=== PATIENT | female | born 1960 | race Two or more races ===

== ENCOUNTER 2017-07-08 09:45 | Inpatient (IN) | payer BC ==
[2017-07-08] VITALS (11 sets, daily range): BP systolic 135–157; BP diastolic 69–85
[~2017-07-08] VITALS: Ht 162.6 cm; Wt 68.0 kg
[~2017-07-08 09:45] MED LIST: AMOX TR-K CLV1 EAC2 ORAL; CENTRUM SILVER1 EAC4 PO; CRESTOR10 M1 ORAL; DIOVAN HCT 1601 EACH ORAL; HAIR, SKIN & N1 EACH PO; IBUPROFEN800 M1 PO; METFORMIN HCL500 M5 PO; MOVE FREE JOIN1 EACH PO; OMEGA 3 FISH O1 EAC1 PO
--- NOTE | 2017-07-08 10:53 | Pre-Procedure Note/Attestation ---
Pre-Procedure Note/Attestation Complete Prior to Procedure Planned Procedure: right Procedure Narrative: Right buttock wound debridement and flap closure Attestation I attest that I discussed the nature of the procedure; its benefits; risks and complications; and alternatives (and the risks and benefits of such alternatives ), prior to the procedure, with the patient (or the patient's legal environmental marketing representative). I attest that, if there was a reasonable possibility of needing a blood transfusion, the patient (or the patient's legal environmental marketing representative) was given the [facility] standardized written summary, pursuant to the Ramez Igor Blood Safety Act ([place] Health and Safety Code # 1645, as amended). I attest that I re-evaluated the patient just prior to the surgery and that there has been no change in the patient's H&P, except as documented below: NORMA ANDERSON Jul 08, 2017 10:53
[2017-07-08] MEDS ORDERED: Zolpidem 5mg tab ORAL PRN (11:00)
[2017-07-08] MEDS ORDERED: Surgicel 4in x 8in TOPIC ONE (11:36)
[2017-07-08] MEDS ORDERED: Bacitracin 50000 Units Vial ONE (11:36)
[2017-07-08] MEDS ORDERED: Lidocaine 1% 10mg/ml/Epi 0.005mg/ml 30ml vial INJ ONE (11:36)
[2017-07-08] MEDS ORDERED: NeoSporin Gu Irrig 1ml Amp IRRIG ONE (11:36)
[2017-07-08] MEDS ORDERED: NS Irrig 1000ml ONE (12:00)
[2017-07-08] MEDS ORDERED: Neostigmine 1mg/ml 10ml Inj ONE (12:00)
[2017-07-08] MEDS ORDERED: Sterile Water Irrig 1000ml IRRIG ONE (12:00)
[2017-07-08] MEDS ORDERED: Zemuron 50mg/5ml Inj IV ONE (12:00)
[2017-07-08] MEDS ORDERED: Succinylcholine 20mg/ml 10ml vial ONE (12:00)
[2017-07-08] MEDS ORDERED: fentaNYL 100 mcg/2 mL IV ONE (12:00)
[2017-07-08] MEDS ORDERED: LR 1000ml ONE (12:00)
[2017-07-08] MEDS ORDERED: Ketorolac 30mg Inj ONE (12:00)
[2017-07-08] MEDS ORDERED: Glycopyrrolate 0.2mg/ml 1ml Vial ONE (12:00)
[2017-07-08] MEDS ORDERED: Midazolam 2mg/2ml Inj ONE (12:00)
[2017-07-08] MEDS ORDERED: Propofol 200mg/20ml IV ONE (12:00)
[2017-07-08] MEDS ORDERED: NS Irrig 1000ml IRRIG ONE (12:00)
[2017-07-08] MEDS ORDERED: Rate Change PCA 1 Each MISC PRN (12:30)
[2017-07-08] MEDS ORDERED: LR 1000ml 1,000 ML IVLG SCH (12:51)
--- NOTE | 2017-07-08 12:51 | Anethesia Preoperative Eval ---
Anesthesia Pre-op PMH/ROS General Date of Evaluation: Jul 08, 2017 Time of Evaluation: 11:55 Anesthesiologist: Misty ASA Score: ASA 3 Mallampati Score Class I : Soft palate, uvula, fauces, pillars visible Class II: Soft palate, uvula, fauces visible Class III: Soft palate, base of uvula visible Class IV: Only hard plate visible Mallampati Classification: Class II Surgeon: Brennan Diagnosis: Recurrent HS Surgical Procedure: Excision and closure of sacral HS Anesthesia History: none Family History: no anesthesia problems Allergies: Coded Allergies: MORPHINE (Verified Allergy, Severe, itching, 07/07/17) CODEINE (Verified Allergy, Intermediate, nauseous , 07/07/17) Medications: see eMAR Past Medical History Cardiovascular: Reports: HTN, Denies: CAD, SD, valve dz, arrhythmia, other Pulmonary: Denies: asthma, COPD, CALLUM, other Gastrointestinal/Genitourinary: Reports: GERD Neurologic/Psychiatric: Reports: depression/anxiety, Denies: dementia, CVA, TIA, other Endocrine: Reports: DM - on pills, Denies: hypothyroidism, steroids, other HEENT: Denies: cataract (L), cataract (R), glaucoma, PLATINUM (L), PLATINUM (R), other Hematology/Immune: Reports: anemia - mild, Denies: DVT, bleeding disorder, other Musculoskeletal/Integumentary: Denies: OA, RA, DJD, DDD, edema, other PMH Narrative: as above PSxH Narrative: C section x 2, knee Sx Anesthesia Pre-op Phys. Exam Physician Exam Last Vital Signs Date Time Temp Pulse Resp B/P (MAP) Pulse Ox O2 Delivery O2 Flow Rate FiO2 07/08/17 10:29 97.7 73 20 137/79 97 Room Air Constitutional: NAD Neurologic: CN 2-12 intact Cardiovascular: RRR, no M/R/G Respiratory: CTA Gastrointestinal: S/NT/ND Airway Exam Mallampati Score: Class II MO: full Neck: flexible ROM: full Teeth: intact Dentures: no upper, no lower Anesthesia Pre-op A/P Labs see chart Studies Pre-op Studies: EKG - NSR Risk Assessment & Plan Assessment: ASA 3 Plan: GA with ETT prone position Status Change Before Surgery: No Pre-Antibiotics Drug: Ancef 1 gr. Given Within 1 Hr of Incision: Yes Time Given: 12:26 LUIS PACKER M.D. Jul 08, 2017 12:51
[2017-07-08] MEDS ORDERED: Hydromorphone 0.5mg/0.5ml inj IVP PRN (13:00)
[2017-07-08] MEDS ORDERED: Meperidine 25mg/0.5ml Inj (FOR RIGORS ONLY) IV PRN (13:00)
[2017-07-08] MEDS ORDERED: DiphenhydrAMINE 50mg/ml Inj IVP PRN (13:00)
[2017-07-08] MEDS ORDERED: Midazolam 2mg/2ml Inj IVP PRN (13:00)
--- NOTE | 2017-07-08 13:08 | Operative Note - PDOC ---
Operative Note Operative Note Pre-op Diagnosis: Infected right lower buttock tissue Procedure: Excision of right lower buttock infected tissue with flap closure Post-op Diagnosis: same as pre-op Surgeon: Brennan Arboriculture Instructor: Felipa Anesthesia: general Specimen: yes Complications: none Condition: stable Estimated Blood Loss: minimal Drains: FIDELIA Implant(s) used?: No NORMA ANDERSON Jul 08, 2017 13:08
[2017-07-08] MEDS: PCA HYDROmorphone 1mg/ml 30 ML IV PRN (13:43)
--- NOTE | 2017-07-08 15:12 | Immediate Post-Op Evaluation ---
Immediate Post-Op Evalulation Immediate Post-Op Evalulation Procedure: Excision and closure of sacral area HS Date of Evaluation: Jul 08, 2017 Time of Evaluation: 13:37 IV Fluids: 1000 Blood Products: none Estimated Blood Loss: 50 Urinary Output: none Blood Pressure Systolic: 141 Blood Pressure Diastolic: 82 Pulse Rate: 74 Respiratory Rate: 20 O2 Sat by Pulse Oximetry: 99 Temperature (Fahrenheit): 97.6 Pain Score (1-10): 2 Nausea: No Vomiting: No Complications none Patient Status: reacts, patent, extubated, none Hydration Status: adequate LUIS PACKER M.D. Jul 08, 2017 15:12
--- NOTE | 2017-07-08 15:23 | History and Physical ---
History of Present Illness General Date patient seen: Jul 08, 2017 Time patient seen: 15:23 Reason for Hospitalization: surgery Present Illness HPI 57yo female with pmh of hidradenitis suppurative who presents s/p excision of right lower buttock infected tissue with flap closure. Pt doing well postop. Pain controlled w/ dilaudid TRADING MANAGER. Denies f/c, n/v, d/c, chest pain, SOB. Passing gas. Allergies: Coded Allergies: MORPHINE (Verified Allergy, Severe, itching, 07/07/17) CODEINE (Verified Allergy, Intermediate, nauseous , 07/07/17) Medication History Scheduled Amoxicillin/Potassium Clav 875-125 Mg Tab* (Amox Tr-K Clv 875-125 Mg Tab*), 1 TAB ORAL EVERY 12 HOURS, (Reported) Glucosam/Chond/Hyalu/Cf Borate (Move Free Joint Health Tablet), 1 EACH PO DAILY, (Reported) Metformin HCl (Metformin HCl ER), 500 MG PO DAILY, (Reported) Mu-Vits-Min Th/Lycopene/Lutein (Centrum Silver Tablet), 1 EACH PO DAILY, ( Reported) Multivitamin With Minerals (Hair, Skin & Nails), 1 EACH PO DAILY, (Reported) Holt-3 Fatty Acids/Fish Oil (Holt 3 Fish Oil Softgel), 1 EACH PO DAILY, ( Reported) Rosuvastatin Calcium (Crestor), 5 MG ORAL DAILY, (Reported) Valsartan/Hydrochlorothiazide 160-12.5MG (Diovan Hct 160-12.5 Mg Tab), 1 TAB ORAL DAILY, (Reported) Scheduled PRN Ibuprofen (Ibuprofen), 800 MG PO TID PRN for For Pain, (Reported) Patient History History Provided By: Patient, Family Member, PMD Healthcare decision maker BRENDA FARAH - Resuscitation status Full Code Advanced Directive on File Family History Family History: Patient reports no known family medical history. Social History Social History: (1) Lives with family Review of Systems Constitutional: Reports: no symptoms Eye: Reports: no symptoms ENT: Reports: no symptoms Respiratory: Reports: no symptoms Cardiovascular: Reports: no symptoms Gastrointestinal: Reports: no symptoms Genitourinary: Reports: no symptoms Musculoskeletal: Reports: no symptoms Skin: Reports: no symptoms Psychiatric: Reports: no symptoms Neurological: Reports: no symptoms Endocrine: Reports: no symptoms Hematologic/Lymphatic: Reports: no symptoms All Other Systems: negative except mentioned in HPI Physical Exam Physical Exam Narrative General: alert, cooperative, no distress, appears stated age Head: normocephalic, without obvious abnormality, atraumatic Eyes: conjunctivae/corneas clear. PERRL, EOM's intact Throat: lips, mucosa, and tongue normal. MMM Neck: supple, symmetrical, trachea midline, and no JVD Lungs: clear to auscultation bilaterally Heart: regular rate and rhythm, S1, S2 normal, no murmur, click, rub or gallop Abdomen: soft, non-tender, non-distended, bowel sounds normal; no masses or organomegaly Extremities: extremities normal, atraumatic, no cyanosis or edema Pulses: 2+ and symmetric Skin: skin color, texture, turgor normal; dressing c/d/i, +FIDELIA drain w/ ss output Neurologic: grossly normal, no focal deficits Last 24 Hour Vital Signs Date Time Temp Pulse Resp B/P (MAP) Pulse Ox O2 Delivery O2 Flow Rate FiO2 07/08/17 15:12 74 20 99 07/08/17 15:08 18 07/08/17 14:45 97.2 07/08/17 14:45 97.0 07/08/17 14:30 97.4 66 20 153/76 99 Nasal Cannula 3.0 07/08/17 14:30 19 07/08/17 14:15 16 07/08/17 14:15 63 21 151/76 99 Nasal Cannula 3.0 07/08/17 14:00 18 07/08/17 14:00 63 19 135/82 100 Nasal Cannula 3.0 07/08/17 13:50 65 19 156/76 98 Nasal Cannula 3.0 07/08/17 13:43 15 07/08/17 13:40 72 19 157/73 100 Simple Mask 6.0 07/08/17 13:35 67 16 147/81 100 Simple Mask 6.0 07/08/17 13:32 97.2 66 14 143/77 100 Simple Mask 6.0 07/08/17 10:29 97.7 73 20 137/79 97 Room Air Intake and Output 07/08/17 07/09/17 19:00 07:00 Intake Total 1100 ml Output Total 20 ml Balance 1080 ml Intake IV Total 1100 ml Output Estimated Blood Loss 20 ml # Voids 1 Height (Feet): 5 Height (Inches): 4.00 Weight (Pounds): 150 Medications Current Medications Medications (Trade) Dose Ordered Sig/Jorgito Route PRN Reason Start Time Stop Time Status Last Admin Dose Admin Cefazolin Sodium 1 gm/Dextrose 55 ml @ 110 mls/hr Q8HR IVPB 07/08/17 22:00 07/15/17 21:59 Heparin Sodium (Porcine) (Heparin 5000 units/ml) 5,000 units EVERY 12 HOURS SUBQ 07/08/17 21:00 08/07/17 20:59 Hydromorphone HCl 30 ml @ 0 mls/hr Q24H PRN IV For Pain 07/08/17 12:30 07/10/17 12:29 07/08/17 13:43 Hydromorphone HCl (Dilaudid) 2 mg Q3H PRN SUBQ Severe Pain (Pain Scale 7-10) 07/08/17 12:30 07/10/17 12:29 Hydromorphone HCl (Dilaudid) 2 mg Q4H PRN IVP Moderate Pain (Pain Scale 4-6) 07/08/17 12:30 07/10/17 12:29 Miscellaneous Medication (TRADING MANAGER Education Pamphlet) 1 ea ONCE ONCE MISC 07/08/17 16:00 07/08/17 16:01 Miscellaneous Medication (TRADING MANAGER Rate Change) 1 ea DAILY PRN MISC rate change 07/08/17 12:30 07/10/17 12:29 Miscellaneous Medication (TRADING MANAGER shift volume) 1 ea Q12HR@0700,1900 MISC 07/08/17 19:00 07/10/17 18:59 Naloxone HCl (Narcan) 0.1 mg PRN IV . 07/08/17 12:30 07/10/17 12:29 Ondansetron HCl (Zofran) 4 mg Q6H PRN IVP Nausea & Vomiting 07/08/17 11:00 08/07/17 10:59 Zolpidem Tartrate (Ambien) 5 mg DAILYPRN PRN ORAL Insomnia 07/08/17 11:00 08/07/17 10:59 Assessment/Plan Problem List: (1) HTN (hypertension) ICD Codes: I10 - Essential (primary) hypertension SNOMED: 60750222 (2) DM2 (diabetes mellitus, type 2) ICD Codes: E11.9 - Type 2 diabetes mellitus without complications SNOMED: 73463485 (3) HLD (hyperlipidemia) ICD Codes: E78.5 - Hyperlipidemia, unspecified SNOMED: 15264923 (4) Hidradenitis suppurativa ICD Codes: L73.2 - Hidradenitis suppurativa SNOMED: 44633777 Status: stable Assessment/Plan Appreciate plastic surgery rec's s/p excision of right lower buttock infected tissue with flap closure on 07/08/17 Post operative recommendations include: - encourage mobilization/ambulation - encourage incentive spirometry to optimize pulmonary hygiene - DVT/GI prophylaxis as appropriate - ctm CBC and hemodynamics - ctm electrolytes, adjust/replete prn - pain control, supportive care, bowel regimen - empiric ancef - IVFs--heplock once tolerating PO - cont home meds - hold home MTF for now - GIRISH FULL CODE D/w pt/, RN, surgery regarding mgmt and dispo Ashley Lopez M.D. Jul 08, 2017 15:23
[2017-07-08] MEDS ORDERED: Miralax 17gm pkt ORAL PRN (15:30)
[2017-07-08] MEDS ORDERED: PCA Education Pamphlet MISC ONE (16:00)
[2017-07-08 16:13] LABS: BASOPHILS % (AUTO) 1.1 % (0.0-2.0); EOSINOPHILS % (AUTO) 2.1 % (0.0-3.0); LYMPHOCYTES % (AUTO) 36.1 % (20.0-45.0); MEAN CORPUSCULAR HEMOGLOBIN 32.7 PG (27.0-31.0); MEAN CORPUSCULAR HGB CONC 35.7 G/DL (32.0-36.0); MEAN CORPUSCULAR VOLUME 92 FL (80-99); MEAN PLATELET VOLUME 7.5 FL (6.5-10.1); MONOCYTES % (AUTO) 6.8 % (1.0-10.0); NEUTROPHILS % (AUTO) 53.9 % (45.0-75.0); PLATELET COUNT 204 K/UL (150-450); RED BLOOD COUNT 3.77 M/UL (4.20-5.40); RED CELL DISTRIBUTION WIDTH 12.4 % (11.6-14.8); WHITE BLOOD COUNT 8.2 K/UL (4.8-10.8)
[2017-07-08 16:29] LABS: ALANINE AMINOTRANSFERASE 20 U/L (3-33); ANION GAP 12 (5-15); ASPARTATE AMINO TRANSFERASE 19 U/L (5-40); BILIRUBIN,DIRECT 0.1 mg/dL (0.1-0.3); CALCIUM 8.9 mg/dL (8.6-10.2); CARBON DIOXIDE 26 mEQ/L (20-30); CHLORIDE 105 mEQ/L (98-107); CREATININE 0.9 mg/dL (0.5-0.9); GLOMERULAR FILTRATION RATE > 60 mL/min (>60); HEMOLYSIS 1; POTASSIUM 3.9 mEQ/L (3.4-4.9); SODIUM 143 mEQ/L (135-145); TOTAL PROTEIN 6.3 g/dL (6.6-8.7)
[2017-07-08] MEDS: Docusate 100mg cap ORAL SCH (18:14)
[2017-07-08] MEDS: PCA shift volume MISC SCH (19:21)
[2017-07-08] MEDS: NovoLOG Insulin Flexpen SUBQ SCH (20:19)
[2017-07-08] MEDS: Heparin 5000 units/ml inj SUBQ SCH (20:21)
[2017-07-08] MEDS: ceFAZolin sod 1 GM in D5W 55 ML IVPB SCH (20:22)
[2017-07-09] VITALS (12 sets, daily range): BP systolic 104–146; BP diastolic 54–72
[2017-07-09] MEDS: ceFAZolin sod 1 GM in D5W 55 ML IVPB SCH ×2 (05:40→17:46)
[2017-07-09] MEDS: NovoLOG Insulin Flexpen SUBQ SCH ×4 (05:49→21:49)
--- NOTE | 2017-07-09 06:15 | Operative Note - Dictated ---
DATE OF OPERATION: 07/08/2017 PREOPERATIVE DIAGNOSIS: Infected right lower buttock mass. POSTOPERATIVE DIAGNOSIS: Infected right lower buttock mass. PROCEDURES: 1. Excision of infected lower buttock mass. 2. Rotational gluteal flap advancement closure of right lower buttock wound. SURGEON: Omega Amin M.D. GASTROENTEROLOGY TECHNICIAN: Patricio Leo M.D. ANESTHESIA: General. COMPLICATIONS: None. DRAINS: Included a size 15 FIDELIA. DISPOSITION: Stable to the recovery room. INDICATIONS FOR SURGERY: This is a 57-year-old female who presented with a longstanding history of an infected right lower buttock mass, which has been causing her significant pain associated with drainage. She had been seen by colorectal surgeon who had placed a seton in the area where there was a questionable fistula, however, the mass has continued to grow and cause significant pain and discomfort for the patient. On evaluation by me, I felt that she was an appropriate candidate for excision of the area with rotational flap reconstruction. She understood the risks and benefits of surgery and agreed to proceed. DETAILS OF THE OPERATION: The patient was brought to the operating room and laid in the prone position on the operating room table. Her lower back and buttocks were prepped and draped in a sterile and usual fashion. We used a marking pen to delineate the extent of the mass and once this was done, a #10 blade was then used to make the incision around the infected buttock mass, which was in the medial aspect of the lower pole of the right buttock. With the mass excised, the wound that resulted measured approximately 12 x 8 cm and was clearly not amenable to primary closure. As such, a laterally based rotational gluteal flap that was fasciocutaneous was designed. A #10 blade was then used to make the skin incision and the flap was elevated just above the level of the gluteal epimysium based off of perforators of the superior gluteal artery. With the flap fully mobilized, there was noted to be able to be inset into the defect without any tension. Prior to the inset of the flap, the wound was copiously irrigated with pulse lavage. Hemostasis was achieved. The flap was then advanced inset using #0 and 2-0 Vicryl sutures. The donor site was also closed with #0 and 2-0 Vicryl sutures and the skin was closed with a combination of sree and 2-0 Prolene. The patient tolerated the procedure well. There are no complications. Omega Amin M.D. DR: ELSI JOB#: [id number] CC:
[2017-07-09] MEDS: PCA shift volume MISC SCH ×2 (07:03→19:00)
--- NOTE | 2017-07-09 07:49 | General Progress Note ---
Progress Note Progress Note Pt seen and examined. Developed increasing pain overnight. FIDLEIA output was minimal about 30cc. The tissues and flap became more taut as well. Tried to aspirate fluid and opened up a few sutures to see if the fluid/blood could be evacuated but unable to effectively remove it. The flap is viable but there appears to be too much pressure on it and given this I feel that it is necessary to explore the wound and evacuate the fluid to relieve the pressure on the flap. Will be going to OR soon. NORMA Rogers MD Jul 09, 2017 07:49
[2017-07-09] MEDS ORDERED: Sterile Water Irrig 1000ml IRRIG ONE (08:30)
[2017-07-09] MEDS ORDERED: NS Irrig 1000ml ONE (08:30)
[2017-07-09] MEDS ORDERED: Propofol 200mg/20ml IV ONE (08:32)
[2017-07-09] MEDS ORDERED: Surgicel 4in x 8in TOPIC ONE (08:32)
--- NOTE | 2017-07-09 08:42 | Pre-Procedure Note/Attestation ---
Pre-Procedure Note/Attestation Complete Prior to Procedure Planned Procedure: right Procedure Narrative: Right buttock wound hematoma evacuation Indications for Procedure Pre-Operative Diagnosis: Infected right lower buttock tissue Attestation I attest that I discussed the nature of the procedure; its benefits; risks and complications; and alternatives (and the risks and benefits of such alternatives ), prior to the procedure, with the patient (or the patient's legal delivery representative). I attest that, if there was a reasonable possibility of needing a blood transfusion, the patient (or the patient's legal delivery representative) was given the [facility] standardized written summary, pursuant to the Ramez Igor Blood Safety Act ([place] Health and Safety Code # 1645, as amended). I attest that I re-evaluated the patient just prior to the surgery and that there has been no change in the patient's H&P, except as documented below: NORMA ANDERSON Jul 09, 2017 08:42
[2017-07-09] MEDS ORDERED: Zolpidem 5mg tab ORAL PRN ×2 (08:45→21:00)
[2017-07-09] MEDS: Docusate 100mg cap ORAL SCH ×2 (09:00→18:00)
[2017-07-09] MEDS ORDERED: DiphenhydrAMINE 50mg/ml Inj IVP PRN ×2 (09:00→10:45)
[2017-07-09] MEDS ORDERED: Ketorolac 30mg Inj ONE (09:00)
[2017-07-09] MEDS ORDERED: Neostigmine 1mg/ml 10ml Inj ONE (09:00)
[2017-07-09] MEDS ORDERED: Succinylcholine 20mg/ml 10ml vial ONE (09:00)
[2017-07-09] MEDS ORDERED: Heparin 5000 units/ml inj SUBQ SCH (09:00)
[2017-07-09] MEDS: Irbesartan 150mg tablet ORAL SCH (09:00)
[2017-07-09] MEDS ORDERED: LR 1000ml ONE (09:00)
[2017-07-09] MEDS ORDERED: fentaNYL 100 mcg/2 mL IV ONE (09:00)
[2017-07-09] MEDS ORDERED: Midazolam 2mg/2ml Inj ONE (09:00)
[2017-07-09] MEDS: Heparin 5000 units/ml inj SUBQ SCH ×2 (09:00→21:48)
[2017-07-09] MEDS ORDERED: Glycopyrrolate 0.2mg/ml 1ml Vial ONE (09:00)
[2017-07-09] MEDS ORDERED: Zemuron 50mg/5ml Inj IV ONE (09:00)
--- NOTE | 2017-07-09 10:02 | Operative Note - PDOC ---
Operative Note Operative Note Pre-op Diagnosis: Right lower buttock wound hematoma Procedure: Evacuation of hematoma from right lower buttock wound Post-op Diagnosis: same as pre-op Surgeon: Brennan Dredge Pipeman: Felipa Anesthesia: general Specimen: yes Complications: none Condition: stable Estimated Blood Loss: minimal Drains: FIDELIA Implant(s) used?: No NORMA ANDERSON Jul 09, 2017 10:02
[2017-07-09] MEDS ORDERED: Bacitracin 50000 Units Vial ONE (10:20)
--- NOTE | 2017-07-09 10:34 | Anethesia Preoperative Eval ---
Anesthesia Pre-op PMH/ROS General Date of Evaluation: Jul 09, 2017 Time of Evaluation: 08:45 Anesthesiologist: Misty ASA Score: ASA 2 Mallampati Score Class I : Soft palate, uvula, fauces, pillars visible Class II: Soft palate, uvula, fauces visible Class III: Soft palate, base of uvula visible Class IV: Only hard plate visible Mallampati Classification: Class II Surgeon: Brennan Diagnosis: R lower back wound hematoma Surgical Procedure: Revision of R lower back wound Anesthesia History: none Family History: no anesthesia problems Allergies: Coded Allergies: MORPHINE (Verified Allergy, Severe, itching, 07/07/17) CODEINE (Verified Allergy, Intermediate, nauseous , 07/07/17) Past Medical History Cardiovascular: Reports: HTN, Denies: CAD, PA, valve dz, arrhythmia, other Pulmonary: Denies: asthma, COPD, CALLUM, other Gastrointestinal/Genitourinary: Reports: GERD, Denies: CRI, ESRD, other Neurologic/Psychiatric: Reports: depression/anxiety, Denies: dementia, CVA, TIA, other Endocrine: Reports: hypothyroidism, Denies: DM, steroids, other Hematology/Immune: Denies: anemia, DVT, bleeding disorder, other Musculoskeletal/Integumentary: Reports: other - recurrent HS, Denies: OA, RA, DJD, DDD, edema PMH Narrative: as above PSxH Narrative: see chart Anesthesia Pre-op Phys. Exam Physician Exam Last Vital Signs Date Time Temp Pulse Resp B/P (MAP) Pulse Ox O2 Delivery O2 Flow Rate FiO2 07/09/17 08:25 98.6 76 20 125/63 95 Room Air 07/09/17 00:00 2.0 Constitutional: NAD Neurologic: CN 2-12 intact Cardiovascular: RRR Respiratory: CTA Gastrointestinal: S/NT/ND Airway Exam Mallampati Score: Class II MO: full Neck: flexible ROM: full Teeth: intact Dentures: no upper, no lower Anesthesia Pre-op A/P Labs Hematology Test 07/08/17 15:45 White Blood Count 8.2 K/UL (4.8-10.8) Red Blood Count 3.77 M/UL (4.20-5.40) L Hemoglobin 12.4 G/DL (12.0-16.0) Hematocrit 34.7 % (37.0-47.0) L Mean Corpuscular Volume 92 FL (80-99) Mean Corpuscular Hemoglobin 32.7 PG (27.0-31.0) H Mean Corpuscular Hemoglobin Concent 35.7 G/DL (32.0-36.0) Red Cell Distribution Width 12.4 % (11.6-14.8) Platelet Count 204 K/UL (150-450) Mean Platelet Volume 7.5 FL (6.5-10.1) Neutrophils (%) (Auto) 53.9 % (45.0-75.0) Lymphocytes (%) (Auto) 36.1 % (20.0-45.0) Monocytes (%) (Auto) 6.8 % (1.0-10.0) Eosinophils (%) (Auto) 2.1 % (0.0-3.0) Basophils (%) (Auto) 1.1 % (0.0-2.0) Chemistry Test 07/08/17 15:45 Sodium Level 143 mEQ/L (135-145) Potassium Level 3.9 mEQ/L (3.4-4.9) Chloride Level 105 mEQ/L (98-107) Carbon Dioxide Level 26 mEQ/L (20-30) Anion Gap 12 (5-15) Blood Urea Nitrogen 12 mg/dL (7-23) Creatinine 0.9 mg/dL (0.5-0.9) Estimat Glomerular Filtration Rate > 60 mL/min (>60) Glucose Level 101 mg/dL (74-106) Calcium Level 8.9 mg/dL (8.6-10.2) Total Bilirubin 0.2 mg/dL (0.0-1.2) Direct Bilirubin 0.1 mg/dL (0.1-0.3) Aspartate Amino Transf (AST/SGOT) 19 U/L (5-40) Alanine Aminotransferase (ALT/SGPT) 20 U/L (3-33) Alkaline Phosphatase 57 U/L (35-104) Total Protein 6.3 g/dL (6.6-8.7) L Albumin 4.0 g/dL (3.5-5.2) Risk Assessment & Plan Assessment: ASA 2 Plan: GA with ETT prone position Status Change Before Surgery: No Pre-Antibiotics Drug: Ancef 1 gr. Given Within 1 Hr of Incision: Yes Time Given: 09:18 VAKULENKO,LUIS, M.D. Jul 09, 2017 10:34
[2017-07-09] MEDS ORDERED: LR 1000ml 1,000 ML IVLG SCH (10:43)
--- NOTE | 2017-07-09 10:43 | Immediate Post-Op Evaluation ---
Immediate Post-Op Evalulation Immediate Post-Op Evalulation Procedure: revision of R lower back wound with evacuation of hematoma Date of Evaluation: Jul 09, 2017 Time of Evaluation: 10:35 IV Fluids: 700 Blood Products: none Estimated Blood Loss: 200 Urinary Output: none Blood Pressure Systolic: 127 Blood Pressure Diastolic: 57 Pulse Rate: 89 Respiratory Rate: 20 O2 Sat by Pulse Oximetry: 99 Temperature (Fahrenheit): 97.8 Pain Score (1-10): 1 Nausea: No Vomiting: No Complications none Patient Status: reacts, patent, extubated, none Hydration Status: adequate LUIS PACKER M.D. Jul 09, 2017 10:43
[2017-07-09] MEDS ORDERED: Metoclopramide 10mg/2ml Inj IVP PRN (10:45)
[2017-07-09] MEDS ORDERED: Meperidine 25mg/0.5ml Inj (FOR RIGORS ONLY) IV PRN (10:45)
[2017-07-09] MEDS ORDERED: Hydromorphone 0.5mg/0.5ml inj IVP PRN (10:45)
[2017-07-09] MEDS ORDERED: Ketorolac 30mg Inj IV PRN (10:45)
[2017-07-09] MEDS: PCA HYDROmorphone 1mg/ml 30 ML IV PRN (13:52)
--- NOTE | 2017-07-09 14:47 | General Progress Note ---
Assessment/Plan Problem List: (1) Hematoma from right lower buttock wound (2) Hidradenitis suppurativa ICD Codes: L73.2 - Hidradenitis suppurativa SNOMED: 70220587 (3) HTN (hypertension) ICD Codes: I10 - Essential (primary) hypertension SNOMED: 77439994 (4) DM2 (diabetes mellitus, type 2) ICD Codes: E11.9 - Type 2 diabetes mellitus without complications SNOMED: 05081527 (5) HLD (hyperlipidemia) ICD Codes: E78.5 - Hyperlipidemia, unspecified SNOMED: 81045698 Status: stable Assessment/Plan - Appreciate plastic surgery rec's - s/p excision of right lower buttock infected tissue with flap closure on - s/p evacuation of hematoma from right lower buttock wound on 07/09/17 Post operative recommendations include: - encourage mobilization/ambulation - encourage incentive spirometry to optimize pulmonary hygiene - DVT/GI prophylaxis as appropriate - ctm CBC and hemodynamics - ctm electrolytes, adjust/replete prn - pain control, supportive care, bowel regimen - empiric ancef - IVFs--heplock once tolerating PO - cont home meds - hold home MTF for now - GIRISH FULL CODE D/w pt/, RN, surgery regarding mgmt and dispo Subjective Date patient seen: Jul 09, 2017 Time patient seen: 14:46 ROS Limited/Unobtainable: No Constitutional: Reports: no symptoms HEENT: Reports: no symptoms Cardiovascular: Reports: no symptoms Respiratory: Reports: no symptoms Gastrointestinal/Abdominal: Reports: no symptoms Genitourinary: Reports: no symptoms Neurologic/Psychiatric: Reports: no symptoms Endocrine: Reports: no symptoms Hematologic/Lymphatic: Reports: no symptoms Allergies: Coded Allergies: MORPHINE (Verified Allergy, Severe, itching, 07/07/17) CODEINE (Verified Allergy, Intermediate, nauseous , 07/07/17) Uncoded Allergies: Tegaderm (Adverse Reaction, Mild, Itching, 07/10/17) Blistering All Systems: reviewed and negative except above Subjective a/p evacuation of hematoma from right lower buttock wound today Pt doing well. Pain controlled w/ dilaudid [employer]. Denies f/c, n/v, d/c, chest pain , SOB Objective Last 24 Hour Vital Signs Date Time Temp Pulse Resp B/P (MAP) Pulse Ox O2 Delivery O2 Flow Rate FiO2 07/09/17 12:00 19 07/09/17 11:25 98.6 96 15 125/65 97 Nasal Cannula 3.0 07/09/17 11:10 95 15 139/58 97 Nasal Cannula 3.0 07/09/17 10:55 95 21 123/56 98 Nasal Cannula 3.0 07/09/17 10:43 89 20 99 07/09/17 10:40 79 16 117/58 99 Simple Mask 6.0 07/09/17 10:29 85 18 127/57 99 Simple Mask 6.0 07/09/17 10:24 83 15 112/55 99 Simple Mask 6.0 07/09/17 10:19 98.8 91 33 120/54 99 Simple Mask 6.0 07/09/17 08:25 98.6 76 20 125/63 95 Room Air 07/09/17 08:00 18 07/09/17 04:00 98.3 78 18 146/61 96 Room Air 07/09/17 04:00 16 07/09/17 00:00 97.8 63 18 144/72 98 Nasal Cannula 2.0 07/08/17 23:40 15 07/08/17 20:00 97.7 70 18 143/85 96 Room Air 07/08/17 20:00 18 07/08/17 19:08 20 07/08/17 16:30 97.3 63 20 143/76 98 Nasal Cannula 07/08/17 15:30 97.2 61 20 142/69 99 Nasal Cannula 07/08/17 15:12 74 20 99 07/08/17 15:08 18 Intake and Output 07/09/17 07/10/17 19:00 07:00 Intake Total 1430 ml Output Total 200 ml Balance 1230 ml Intake Oral 280 ml IV Total 1150 ml Output Estimated Blood Loss 200 ml # Voids 1 Laboratory Tests 07/08/17 15:45: White Blood Count 8.2, Red Blood Count 3.77L, Hemoglobin 12.4, Hematocrit 34.7L , Mean Corpuscular Volume 92, Mean Corpuscular Hemoglobin 32.7H, Mean Corpuscular Hemoglobin Concent 35.7, Red Cell Distribution Width 12.4, Platelet Count 204, Mean Platelet Volume 7.5, Neutrophils (%) (Auto) 53.9, Lymphocytes (% ) (Auto) 36.1, Monocytes (%) (Auto) 6.8, Eosinophils (%) (Auto) 2.1, Basophils ( %) (Auto) 1.1, Sodium Level 143, Potassium Level 3.9, Chloride Level 105, Carbon Dioxide Level 26, Anion Gap 12, Blood Urea Nitrogen 12, Creatinine 0.9, Estimat Glomerular Filtration Rate > 60, Glucose Level 101, Calcium Level 8.9, Total Bilirubin 0.2, Direct Bilirubin 0.1, Aspartate Amino Transf (AST/SGOT) 19 , Alanine Aminotransferase (ALT/SGPT) 20, Alkaline Phosphatase 57, Total Protein 6.3L, Albumin 4.0 Height (Feet): 5 Height (Inches): 4.00 Weight (Pounds): 150 Objective General: alert, cooperative, no distress, appears stated age Head: normocephalic, without obvious abnormality, atraumatic Eyes: conjunctivae/corneas clear. PERRL, EOM's intact Throat: lips, mucosa, and tongue normal. MMM Neck: supple, symmetrical, trachea midline, and no JVD Lungs: clear to auscultation bilaterally Heart: regular rate and rhythm, S1, S2 normal, no murmur, click, rub or gallop Abdomen: soft, non-tender, non-distended, bowel sounds normal; no masses or organomegaly Extremities: extremities normal, atraumatic, no cyanosis or edema Dressing c/d/i Pulses: 2+ and symmetric Skin: skin color, texture, turgor normal; no rashes or lesions Neurologic: grossly normal, no focal deficits Ashley Lopez M.D. Jul 09, 2017 14:47
[2017-07-10 00:19] VITALS: BP 114/63
[2017-07-10] MEDS: ceFAZolin sod 1 GM in D5W 55 ML IVPB SCH ×4 (01:16→23:42)
[2017-07-10 04:00] VITALS: BP 134/61
[2017-07-10 06:07] LABS: BASOPHILS % (AUTO) 0.6 % (0.0-2.0); MEAN CORPUSCULAR HGB CONC 33.5 G/DL (32.0-36.0); MEAN CORPUSCULAR VOLUME 96 FL (80-99); MEAN PLATELET VOLUME 7.9 FL (6.5-10.1); MONOCYTES % (AUTO) 9.1 % (1.0-10.0); NEUTROPHILS % (AUTO) 63.4 % (45.0-75.0); PLATELET COUNT 190 K/UL (150-450); RED BLOOD COUNT 3.15 M/UL (4.20-5.40); RED CELL DISTRIBUTION WIDTH 12.6 % (11.6-14.8); WHITE BLOOD COUNT 11.7 K/UL (4.8-10.8)
[2017-07-10] MEDS: NovoLOG Insulin Flexpen SUBQ SCH ×4 (06:19→21:09)
[2017-07-10] MEDS: PCA shift volume MISC SCH ×2 (07:22→19:00)
--- NOTE | 2017-07-10 08:15 | Operative Note - Dictated ---
DATE OF OPERATION: 07/09/2017 PREOPERATIVE DIAGNOSIS: Right lower buttock wound hematoma, status post reconstruction. POSTOPERATIVE DIAGNOSIS: Right lower buttock wound hematoma, status post reconstruction. PROCEDURES: 1. Exploration of right lower buttock wound. 2. Evacuation of hematoma from her lower buttock wound. 3. Flap readvancement closure of right lower buttock wound. SURGEON: Omega Amin M.D. FUNERAL LIMOUSINE DRIVER: Patricio Leo M.D. ANESTHESIA: General. COMPLICATIONS: None. ESTIMATED BLOOD LOSS: Approximately 175 mL of clot. DISPOSITION: Stable to the recovery room. INDICATIONS FOR SURGERY: This is a 57-year-old female, who is 24 hours postoperative from right lower buttock wound, excision of mass with flap reconstruction. She was doing well postoperatively, however, over the course of the night, her right lower buttock wound was causing her some discomfort and increasing pain and was noted to be swelling. On my exam of the area, I attempted to perform aspiration as well as opening of of a few sree to remove whatever fluid or hematoma within the wound be evacuated, however, this was not effective and I felt that given the amount of swelling and pain and what appeared to be evidence of hematoma that would be best to perform the evacuation of hematoma in the operating room. The patient understood the risks and benefits of surgery and agreed to proceed. DETAILS OF THE OPERATION: The patient was brought to the operating room and was laid in the prone position on the operating room table. Her lower back was prepped and draped in a sterile and usual fashion. We began by removing all the sree and sutures that have been previously placed and upon opening the wound, we encountered approximately 175 mL of clot. This was all removed. The wound was copiously irrigated with pulse lavage. We found some minor bleeding vessels over the gluteus muscle, fibers as well as some bleeding fibers over the rotational advancement flap under belly. We irrigated this with pulse lavage as well as warm fluid, waited 10 minutes and then reexamined the wound and there appeared to be no evidence of any active bleeding. As stated before, she was brought to the operating room 24 hours ago for reconstruction. At the time of closure, there was no evidence of bleeding, but more than likely what happened was in the situation there may have been some muscle fibers, which even though they were not bleeding at the last operation, started to ooze and caused this formation of hematoma. Again, after giving another 5 minutes, total of 15 minutes were given for the wound to be examined again for bleeding and there was no evidence of any bleeding and after complete hemostasis was achieved, the flap was readvanced over Surgicel with a 19 Johan-Yuan drain inset using #0 and 2-0 Vicryl sutures and sree were used to close the skin as well as #0 Prolene to reapproximate the tip of the flap to the perianal margins. The patient tolerated the procedure well. There were no complications. Omega Amin M.D. DR: ELSI JOB#: [id number] CC: DEMETRIS
[2017-07-10 08:43] VITALS: BP 114/65
[2017-07-10] MEDS: Docusate 100mg cap ORAL SCH ×2 (08:43→17:25)
[2017-07-10] MEDS: Heparin 5000 units/ml inj SUBQ SCH ×2 (08:45→21:09)
[2017-07-10] MEDS: Irbesartan 150mg tablet ORAL SCH (08:46)
--- NOTE | 2017-07-10 09:54 | 48 Hour Post Anesthesia Eval ---
Post Anesthesia Evaluation Procedure: revision of R lower back wound with evacuation of hematoma Date of Evaluation: Jul 10, 2017 Time of Evaluation: 09:52 Blood Pressure Systolic: 116 0: 57 Pulse Rate: 64 Respiratory Rate: 20 Temperature (Fahrenheit): 97.6 O2 Sat by Pulse Oximetry: 98 Airway: patent Nausea: No Vomiting: No Pain Intensity: 3 Hydration Status: adequate Cardiopulmonary Status: stable Mental Status/LOC: patient returned to baseline Follow-up Care/Observations: n/a Post-Anesthesia Complications: none Follow-up care needed: N/A LUIS PACKER M.D. Jul 10, 2017 09:54
[2017-07-10 12:34] VITALS: BP 103/64
[2017-07-10] MEDS ORDERED: Rate Change PCA 1 Each MISC PRN (12:45)
[2017-07-10] MEDS ORDERED: Naloxone 0.4mg/ml Inj IVP PRN (12:45)
--- NOTE | 2017-07-10 13:15 | General Progress Note ---
Assessment/Plan Problem List: (1) Postoperative fever ICD Codes: R50.82 - Postprocedural fever SNOMED: 074040709 (2) Hematoma from right lower buttock wound (3) Hidradenitis suppurativa ICD Codes: L73.2 - Hidradenitis suppurativa SNOMED: 24647881 (4) HTN (hypertension) ICD Codes: I10 - Essential (primary) hypertension SNOMED: 09204984 (5) DM2 (diabetes mellitus, type 2) ICD Codes: E11.9 - Type 2 diabetes mellitus without complications SNOMED: 81733931 (6) HLD (hyperlipidemia) ICD Codes: E78.5 - Hyperlipidemia, unspecified SNOMED: 84400681 Status: stable Assessment/Plan - Appreciate plastic surgery rec's - s/p excision of right lower buttock infected tissue with flap closure on - s/p evacuation of hematoma from right lower buttock wound on 07/09/17 Post operative recommendations include: - encourage mobilization/ambulation - encourage incentive spirometry to optimize pulmonary hygiene - DVT/GI prophylaxis as appropriate - ctm CBC and hemodynamics - ctm electrolytes, adjust/replete prn - pain control, supportive care, bowel regimen - empiric ancef - IVFs--heplock once tolerating PO - cont home meds - hold home MTF for now - GIRISH FULL CODE D/w pt/, RN, surgery regarding mgmt and dispo Subjective Date patient seen: Jul 10, 2017 Time patient seen: 13:13 ROS Limited/Unobtainable: No Constitutional: Reports: no symptoms HEENT: Reports: no symptoms Cardiovascular: Reports: no symptoms Respiratory: Reports: no symptoms Gastrointestinal/Abdominal: Reports: no symptoms Genitourinary: Reports: no symptoms Neurologic/Psychiatric: Reports: no symptoms Endocrine: Reports: no symptoms Hematologic/Lymphatic: Reports: no symptoms Allergies: Coded Allergies: MORPHINE (Verified Allergy, Severe, itching, 07/07/17) CODEINE (Verified Allergy, Intermediate, nauseous , 07/07/17) Uncoded Allergies: Tegaderm (Adverse Reaction, Mild, Itching, 07/10/17) Blistering All Systems: reviewed and negative except above Subjective s/p evacuation of hematoma from right lower buttock wound yesterday fever to 101 this AM WBC 11.6 Pt doing well. Pain controlled w/ dilaudid [employer]. Denies f/c, n/v, d/c, chest pain , SOB Objective Last 24 Hour Vital Signs Date Time Temp Pulse Resp B/P (MAP) Pulse Ox O2 Delivery O2 Flow Rate FiO2 07/10/17 12:34 100.0 92 20 103/64 98 Room Air 07/10/17 12:00 18 07/10/17 09:54 64 20 98 07/10/17 08:46 114/65 07/10/17 08:43 99.6 103 20 114/65 95 Room Air 07/10/17 08:00 18 07/10/17 04:00 98.0 83 19 134/61 98 Room Air 07/10/17 04:00 18 07/10/17 00:19 99.0 94 20 114/63 93 Room Air 07/10/17 00:00 99.0 07/10/17 00:00 18 07/09/17 20:20 101.2 104 20 104/61 95 Room Air 07/09/17 20:00 18 07/09/17 16:10 97.1 96 20 116/71 99 Room Air 07/09/17 16:00 18 Intake and Output 07/10/17 07/11/17 19:00 07:00 Intake Total 240 ml Balance 240 ml Intake Oral 240 ml Laboratory Tests 07/10/17 05:00: White Blood Count 11.7H, Red Blood Count 3.15L, Hemoglobin 10.1L, Hematocrit 30.1L, Mean Corpuscular Volume 96, Mean Corpuscular Hemoglobin 32.0H, Mean Corpuscular Hemoglobin Concent 33.5, Red Cell Distribution Width 12.6, Platelet Count 190, Mean Platelet Volume 7.9, Neutrophils (%) (Auto) 63.4, Lymphocytes (% ) (Auto) 25.0, Monocytes (%) (Auto) 9.1, Eosinophils (%) (Auto) 2.0, Basophils ( %) (Auto) 0.6 Height (Feet): 5 Height (Inches): 4.00 Weight (Pounds): 150 Objective General: alert, cooperative, no distress, appears stated age Head: normocephalic, without obvious abnormality, atraumatic Eyes: conjunctivae/corneas clear. PERRL, EOM's intact Throat: lips, mucosa, and tongue normal. MMM Neck: supple, symmetrical, trachea midline, and no JVD Lungs: clear to auscultation bilaterally Heart: regular rate and rhythm, S1, S2 normal, no murmur, click, rub or gallop Abdomen: soft, non-tender, non-distended, bowel sounds normal; no masses or organomegaly Extremities: extremities normal, atraumatic, no cyanosis or edema Dressing c/d/i Pulses: 2+ and symmetric Skin: skin color, texture, turgor normal; no rashes or lesions Neurologic: grossly normal, no focal deficits Ashley Lopez M.D. Jul 10, 2017 13:15
[2017-07-10] MEDS: PCA HYDROmorphone 1mg/ml 30 ML IV PRN (14:14)
[2017-07-10 16:14] VITALS: BP 117/67
[2017-07-10 20:00] VITALS: BP 114/64
[2017-07-10 20:04] LABS: APPEARANCE,URINE CLEAR; KETONES,URINE NEGATIVE (NEGATIVE); LEUKOCYTE ESTERASE ,URINE NEGATIVE (NEGATIVE); NITRITE,URINE NEGATIVE (NEGATIVE); PH,URINE 6 (4.5-8.0); PROTEIN,URINE NEGATIVE (NEGATIVE); UROBILINOGEN,URINE NORMAL MG/DL (0.0-1.0)
[2017-07-11] VITALS: BP 140/63
[2017-07-11 04:00] VITALS: BP 136/61
[2017-07-11] MEDS: NovoLOG Insulin Flexpen SUBQ SCH ×4 (05:42→20:25)
[2017-07-11] MEDS: PCA shift volume MISC SCH ×2 (07:07→19:00)
[2017-07-11 07:28] LABS: BASOPHILS % (AUTO) 0.7 % (0.0-2.0); EOSINOPHILS % (AUTO) 2.7 % (0.0-3.0); LYMPHOCYTES % (AUTO) 34.6 % (20.0-45.0); MEAN CORPUSCULAR HEMOGLOBIN 32.9 PG (27.0-31.0); MEAN CORPUSCULAR HGB CONC 34.4 G/DL (32.0-36.0); MEAN CORPUSCULAR VOLUME 96 FL (80-99); MEAN PLATELET VOLUME 7.9 FL (6.5-10.1); MONOCYTES % (AUTO) 7.6 % (1.0-10.0); NEUTROPHILS % (AUTO) 54.5 % (45.0-75.0); PLATELET COUNT 170 K/UL (150-450); RED BLOOD COUNT 2.72 M/UL (4.20-5.40); RED CELL DISTRIBUTION WIDTH 12.5 % (11.6-14.8); WHITE BLOOD COUNT 10.4 K/UL (4.8-10.8)
[2017-07-11 07:42] LABS: ANION GAP 12 (5-15); CALCIUM 8.4 mg/dL (8.6-10.2); CARBON DIOXIDE 25 mEQ/L (20-30); CHLORIDE 102 mEQ/L (98-107); CREATININE 0.6 mg/dL (0.5-0.9); GLOMERULAR FILTRATION RATE > 60 mL/min (>60); HEMOLYSIS 1; POTASSIUM 3.6 mEQ/L (3.4-4.9); SODIUM 139 mEQ/L (135-145)
[2017-07-11 08:15] VITALS: BP 104/57
[2017-07-11] MEDS: Irbesartan 150mg tablet ORAL SCH (09:16)
[2017-07-11] MEDS: Docusate 100mg cap ORAL SCH ×2 (09:17→17:43)
[2017-07-11] MEDS: ceFAZolin sod 1 GM in D5W 55 ML IVPB SCH ×2 (09:17→17:43)
[2017-07-11] MEDS: Heparin 5000 units/ml inj SUBQ SCH ×2 (09:18→20:26)
--- NOTE | 2017-07-11 10:56 | General Progress Note ---
Progress Note Progress Note Pt seen and examined. POD # 2 from evacuation of hematoma. Doing well and pain is well controlled. Flap is viable and wound closed. Continue pain meds and abx. DC home on Thursday. NORMA Rogers MD Jul 11, 2017 10:56
[2017-07-11 12:15] VITALS: BP 126/66
--- NOTE | 2017-07-11 13:10 | General Progress Note ---
Assessment/Plan Problem List: (1) Postoperative fever ICD Codes: R50.82 - Postprocedural fever SNOMED: 473760632 (2) Hematoma from right lower buttock wound (3) Hidradenitis suppurativa ICD Codes: L73.2 - Hidradenitis suppurativa SNOMED: 45018343 (4) HTN (hypertension) ICD Codes: I10 - Essential (primary) hypertension SNOMED: 16634747 (5) DM2 (diabetes mellitus, type 2) ICD Codes: E11.9 - Type 2 diabetes mellitus without complications SNOMED: 54454723 (6) HLD (hyperlipidemia) ICD Codes: E78.5 - Hyperlipidemia, unspecified SNOMED: 86115935 Status: stable Assessment/Plan - Appreciate plastic surgery rec's - s/p excision of right lower buttock infected tissue with flap closure on - s/p evacuation of hematoma from right lower buttock wound on 07/09/17 Post operative recommendations include: - encourage mobilization/ambulation - encourage incentive spirometry to optimize pulmonary hygiene - DVT/GI prophylaxis as appropriate - ctm CBC and hemodynamics - ctm electrolytes, adjust/replete prn - pain control, supportive care, bowel regimen - empiric ancef - IVFs--heplock once tolerating PO - cont home meds - hold home MTF for now - GIRISH - DC planning likely Mon FULL CODE D/w pt/, RN, surgery regarding mgmt and dispo Subjective Date patient seen: Jul 11, 2017 Time patient seen: 13:06 ROS Limited/Unobtainable: No Constitutional: Reports: no symptoms HEENT: Reports: no symptoms Cardiovascular: Reports: no symptoms Respiratory: Reports: no symptoms Gastrointestinal/Abdominal: Reports: no symptoms Genitourinary: Reports: no symptoms Neurologic/Psychiatric: Reports: no symptoms Endocrine: Reports: no symptoms Hematologic/Lymphatic: Reports: no symptoms Allergies: Coded Allergies: MORPHINE (Verified Allergy, Severe, itching, 07/07/17) CODEINE (Verified Allergy, Intermediate, nauseous , 07/07/17) Uncoded Allergies: Tegaderm (Adverse Reaction, Mild, Itching, 07/10/17) Blistering Subjective s/p evacuation of hematoma from right lower buttock wound POD#1 Tmax 100 yesterday at noon Pt doing well. Pain controlled. Denies f/c, n/v, d/c, chest pain, SOB Objective Last 24 Hour Vital Signs Date Time Temp Pulse Resp B/P (MAP) Pulse Ox O2 Delivery O2 Flow Rate FiO2 07/11/17 09:16 104/57 07/11/17 08:15 98.2 73 16 104/57 96 Room Air 07/11/17 08:00 18 07/11/17 04:00 18 07/11/17 04:00 98.3 76 18 136/61 97 Room Air 07/11/17 00:00 18 07/11/17 00:00 98.9 90 18 140/63 98 Room Air 07/10/17 20:00 18 07/10/17 20:00 99.9 97 18 114/64 94 Room Air 07/10/17 16:14 99.2 91 20 117/67 97 Room Air 07/10/17 16:00 18 07/10/17 14:20 18 Laboratory Tests 07/10/17 19:00: Urine Color Pale yellow, Urine Appearance Clear, Urine pH 6, Urine Specific [place] 1.005, Urine Protein Negative, Urine Glucose (UA) Negative, Urine Ketones Negative, Urine Occult Blood Negative, Urine Nitrite Negative, Urine Bilirubin Negative, Urine Urobilinogen Normal, Urine Leukocyte Esterase Negative 07/11/17 04:50: White Blood Count 10.4, Red Blood Count 2.72L, Hemoglobin 9.0L, Hematocrit 26.1L , Mean Corpuscular Volume 96, Mean Corpuscular Hemoglobin 32.9H, Mean Corpuscular Hemoglobin Concent 34.4, Red Cell Distribution Width 12.5, Platelet Count 170, Mean Platelet Volume 7.9, Neutrophils (%) (Auto) 54.5, Lymphocytes (% ) (Auto) 34.6, Monocytes (%) (Auto) 7.6, Eosinophils (%) (Auto) 2.7, Basophils ( %) (Auto) 0.7, Sodium Level 139, Potassium Level 3.6, Chloride Level 102, Carbon Dioxide Level 25, Anion Gap 12, Blood Urea Nitrogen 8, Creatinine 0.6, Estimat Glomerular Filtration Rate > 60, Glucose Level 94, Calcium Level 8.4L Height (Feet): 5 Height (Inches): 4.00 Weight (Pounds): 150 Objective General: alert, cooperative, no distress, appears stated age Head: normocephalic, without obvious abnormality, atraumatic Eyes: conjunctivae/corneas clear. PERRL, EOM's intact Throat: lips, mucosa, and tongue normal. MMM Neck: supple, symmetrical, trachea midline, and no JVD Lungs: clear to auscultation bilaterally Heart: regular rate and rhythm, S1, S2 normal, no murmur, click, rub or gallop Abdomen: soft, non-tender, non-distended, bowel sounds normal; no masses or organomegaly Extremities: extremities normal, atraumatic, no cyanosis or edema Dressing c/d/i +FIDELIA drain w/ ss output Pulses: 2+ and symmetric Skin: skin color, texture, turgor normal; no rashes or lesions Neurologic: grossly normal, no focal deficits Ashley Lopez M.D. Jul 11, 2017 13:10
[2017-07-11] MEDS ORDERED: 1/2 NS 1000ml IV ONE (13:41)
[2017-07-11] MEDS ORDERED: Tubing IV Secondary IV ONE (13:41)
[2017-07-11] MEDS: PCA HYDROmorphone 1mg/ml 30 ML IV PRN (15:21)
[2017-07-11 16:00] VITALS: BP 152/73
[2017-07-11 20:00] VITALS: BP 126/66
[2017-07-12] VITALS: BP 127/60
[2017-07-12] MEDS: ceFAZolin sod 1 GM in D5W 55 ML IVPB SCH ×3 (00:05→17:52)
[2017-07-12 04:00] VITALS: BP 110/60
[2017-07-12] MEDS: NovoLOG Insulin Flexpen SUBQ SCH ×4 (05:59→21:28)
[2017-07-12] MEDS: PCA shift volume MISC SCH ×3 (07:07→19:00)
[2017-07-12 08:00] VITALS: BP 122/64
[2017-07-12] MEDS ORDERED: KEFLEX500 MG ORAL (08:27)
[2017-07-12] MEDS: Docusate 100mg cap ORAL SCH ×2 (08:59→17:55)
[2017-07-12] MEDS: Heparin 5000 units/ml inj SUBQ SCH ×2 (09:01→21:27)
[2017-07-12] MEDS: Irbesartan 150mg tablet ORAL SCH (09:07)
[2017-07-12] MEDS ORDERED: Naloxone 0.4mg/ml Inj IVP PRN (12:00)
[2017-07-12] MEDS ORDERED: Rate Change PCA 1 Each MISC PRN (12:00)
[2017-07-12 12:33] VITALS: BP 104/61
--- NOTE | 2017-07-12 13:41 | General Progress Note ---
Assessment/Plan Problem List: (1) Postoperative fever ICD Codes: R50.82 - Postprocedural fever SNOMED: 105753410 (2) Hematoma from right lower buttock wound (3) Hidradenitis suppurativa ICD Codes: L73.2 - Hidradenitis suppurativa SNOMED: 50924468 (4) HTN (hypertension) ICD Codes: I10 - Essential (primary) hypertension SNOMED: 95890442 (5) DM2 (diabetes mellitus, type 2) ICD Codes: E11.9 - Type 2 diabetes mellitus without complications SNOMED: 61459882 (6) HLD (hyperlipidemia) ICD Codes: E78.5 - Hyperlipidemia, unspecified SNOMED: 33395085 Status: stable Assessment/Plan - Appreciate plastic surgery rec's - s/p excision of right lower buttock infected tissue with flap closure on - s/p evacuation of hematoma from right lower buttock wound on 07/09/17 Post operative recommendations include: - encourage mobilization/ambulation - encourage incentive spirometry to optimize pulmonary hygiene - DVT/GI prophylaxis as appropriate - ctm CBC and hemodynamics - ctm electrolytes, adjust/replete prn - pain control, supportive care, bowel regimen - empiric ancef - IVFs--heplock once tolerating PO - cont home meds - hold home MTF for now - GIRISH - DC planning likely Mon FULL CODE D/w pt/, RN, surgery regarding mgmt and dispo Subjective Date patient seen: Jul 12, 2017 Time patient seen: 13:40 ROS Limited/Unobtainable: No Constitutional: Reports: no symptoms HEENT: Reports: no symptoms Cardiovascular: Reports: no symptoms Respiratory: Reports: no symptoms Gastrointestinal/Abdominal: Reports: no symptoms Genitourinary: Reports: no symptoms Neurologic/Psychiatric: Reports: no symptoms Endocrine: Reports: no symptoms Hematologic/Lymphatic: Reports: no symptoms Allergies: Coded Allergies: MORPHINE (Verified Allergy, Severe, itching, 07/07/17) CODEINE (Verified Allergy, Intermediate, nauseous , 07/07/17) Uncoded Allergies: Tegaderm (Adverse Reaction, Mild, Itching, 07/10/17) Blistering Subjective s/p evacuation of hematoma from right lower buttock wound POD#2 Afebrile o/n Pt doing well. Pain controlled. Denies f/c, n/v, d/c, chest pain, SOB Objective Last 24 Hour Vital Signs Date Time Temp Pulse Resp B/P (MAP) Pulse Ox O2 Delivery O2 Flow Rate FiO2 07/12/17 12:33 99.3 87 20 104/61 98 Room Air 07/12/17 12:00 19 07/12/17 09:07 122/64 07/12/17 08:00 19 07/12/17 08:00 99.1 85 20 122/64 100 Nasal Cannula 07/12/17 04:00 18 07/12/17 04:00 99.5 86 17 110/60 96 Room Air 07/12/17 00:00 18 07/12/17 00:00 99.1 83 17 127/60 96 Room Air 07/11/17 20:00 18 07/11/17 20:00 99.3 82 17 126/66 96 Room Air 07/11/17 16:00 98.7 93 18 152/73 99 Room Air 07/11/17 15:53 99.2 07/11/17 15:25 18 07/11/17 15:24 18 Intake and Output 07/12/17 07/13/17 19:00 07:00 Intake Total 690 ml Balance 690 ml Intake Oral 240 ml IV Total 450 ml Height (Feet): 5 Height (Inches): 4.00 Weight (Pounds): 150 Objective General: alert, cooperative, no distress, appears stated age Head: normocephalic, without obvious abnormality, atraumatic Eyes: conjunctivae/corneas clear. PERRL, EOM's intact Throat: lips, mucosa, and tongue normal. MMM Neck: supple, symmetrical, trachea midline, and no JVD Lungs: clear to auscultation bilaterally Heart: regular rate and rhythm, S1, S2 normal, no murmur, click, rub or gallop Abdomen: soft, non-tender, non-distended, bowel sounds normal; no masses or organomegaly Extremities: extremities normal, atraumatic, no cyanosis or edema Dressing c/d/i +FIDELIA drain w/ ss output Pulses: 2+ and symmetric Skin: skin color, texture, turgor normal; no rashes or lesions Neurologic: grossly normal, no focal deficits Ashley Lopez M.D. Jul 12, 2017 13:41
[2017-07-12] MEDS: PCA HYDROmorphone 1mg/ml 30 ML IV PRN (15:22)
[2017-07-12 16:00] VITALS: BP 123/68
[2017-07-12] MEDS ORDERED: 1/2 NS 1000ml IV ONE (18:25)
[2017-07-12 20:00] VITALS: BP 114/71
[2017-07-13] VITALS: BP 118/62
[2017-07-13] MEDS: ceFAZolin sod 1 GM in D5W 55 ML IVPB SCH ×2 (00:28→09:50)
[2017-07-13 04:00] VITALS: BP 154/84
[2017-07-13] MEDS: PCA shift volume MISC SCH ×2 (07:00→19:14)
[2017-07-13] MEDS: NovoLOG Insulin Flexpen SUBQ SCH ×4 (07:02→21:16)
[2017-07-13 08:00] VITALS: BP 127/69
[2017-07-13] MEDS: Irbesartan 150mg tablet ORAL SCH (09:50)
[2017-07-13] MEDS: Docusate 100mg cap ORAL SCH ×2 (09:51→17:53)
[2017-07-13] MEDS: Heparin 5000 units/ml inj SUBQ SCH ×2 (09:59→21:15)
[2017-07-13 10:45] LABS: BASOPHILS % (AUTO) 0.7 % (0.0-2.0); LYMPHOCYTES % (AUTO) 22.7 % (20.0-45.0); MEAN CORPUSCULAR HEMOGLOBIN 31.5 PG (27.0-31.0); MEAN CORPUSCULAR HGB CONC 33.6 G/DL (32.0-36.0); MEAN CORPUSCULAR VOLUME 94 FL (80-99); MEAN PLATELET VOLUME 6.7 FL (6.5-10.1); MONOCYTES % (AUTO) 11.6 % (1.0-10.0); NEUTROPHILS % (AUTO) 62.1 % (45.0-75.0); PLATELET COUNT 256 K/UL (150-450); RED BLOOD COUNT 2.91 M/UL (4.20-5.40); RED CELL DISTRIBUTION WIDTH 12.4 % (11.6-14.8); WHITE BLOOD COUNT 7.4 K/UL (4.8-10.8)
[2017-07-13 12:00] VITALS: BP 108/59
[2017-07-13] MEDS: Cefepime HCl 2 GM in D5W 110 ML IVPB SCH ×2 (12:34→21:08)
[2017-07-13] MEDS: Vancomycin 1250mg/D5W 250ml IVPB SCH ×2 (14:28→23:34)
[2017-07-13 16:00] VITALS: BP 124/56
--- NOTE | 2017-07-13 16:12 | General Progress Note ---
Assessment/Plan Problem List: (1) cellulitis of flap (2) Postoperative fever ICD Codes: R50.82 - Postprocedural fever SNOMED: 396813082 (3) Hematoma from right lower buttock wound (4) Hidradenitis suppurativa ICD Codes: L73.2 - Hidradenitis suppurativa SNOMED: 34905600 (5) HTN (hypertension) ICD Codes: I10 - Essential (primary) hypertension SNOMED: 24565741 (6) DM2 (diabetes mellitus, type 2) ICD Codes: E11.9 - Type 2 diabetes mellitus without complications SNOMED: 65589491 (7) HLD (hyperlipidemia) ICD Codes: E78.5 - Hyperlipidemia, unspecified SNOMED: 43003997 Status: stable Assessment/Plan - Appreciate plastic surgery rec's - s/p excision of right lower buttock infected tissue with flap closure on - s/p evacuation of hematoma from right lower buttock wound on 07/09/17 - ID consulted - Abx expanded to Vanco and Cefepime (07/13-) - s/p cefepime Post operative recommendations include: - encourage mobilization/ambulation - encourage incentive spirometry to optimize pulmonary hygiene - DVT/GI prophylaxis as appropriate - ctm CBC and hemodynamics - ctm electrolytes, adjust/replete prn - pain control, supportive care, bowel regimen - IVFs--heplock once tolerating PO - cont home meds - hold home MTF for now - GIRISH - DC planning pending clearance from surgery and ID FULL CODE D/w pt/, RN, surgery regarding mgmt and dispo. D/w surgery regarding cellulitis. D/w ID re abx Subjective Date patient seen: Jul 13, 2017 Time patient seen: 16:10 ROS Limited/Unobtainable: No Constitutional: Reports: no symptoms HEENT: Reports: no symptoms Cardiovascular: Reports: no symptoms Respiratory: Reports: no symptoms Gastrointestinal/Abdominal: Reports: no symptoms Genitourinary: Reports: no symptoms Neurologic/Psychiatric: Reports: no symptoms Endocrine: Reports: no symptoms Allergies: Coded Allergies: MORPHINE (Verified Allergy, Severe, itching, 07/07/17) CODEINE (Verified Allergy, Intermediate, nauseous , 07/07/17) Uncoded Allergies: Tegaderm (Adverse Reaction, Mild, Itching, 07/10/17) Blistering Subjective s/p evacuation of hematoma from right lower buttock wound POD#3 D/c held given concern for cellulitis of flap Afebrile o/n WBC 7.4 Abx expanded to vanco and cefepime per ID Pt doing well. Pain controlled. Denies f/c, n/v, d/c, chest pain, SOB +BM Objective Last 24 Hour Vital Signs Date Time Temp Pulse Resp B/P (MAP) Pulse Ox O2 Delivery O2 Flow Rate FiO2 07/13/17 12:00 20 07/13/17 12:00 99.7 79 18 108/59 96 Room Air 07/13/17 09:50 127/69 07/13/17 08:00 20 07/13/17 08:00 99.8 78 18 127/69 98 Room Air 07/13/17 04:00 20 07/13/17 04:00 99.5 85 18 154/84 97 Room Air 07/13/17 00:00 20 07/13/17 00:00 99.2 81 18 118/62 94 Room Air 07/12/17 20:00 20 07/12/17 20:00 99.1 87 18 114/71 96 Room Air Intake and Output 07/13/17 07/14/17 19:00 07:00 Intake Total 480 ml Balance 480 ml Intake Oral 480 ml # Voids 2 Laboratory Tests 07/13/17 10:25: White Blood Count 7.4, Red Blood Count 2.91L, Hemoglobin 9.2L, Hematocrit 27.3L , Mean Corpuscular Volume 94, Mean Corpuscular Hemoglobin 31.5H, Mean Corpuscular Hemoglobin Concent 33.6, Red Cell Distribution Width 12.4, Platelet Count 256, Mean Platelet Volume 6.7, Neutrophils (%) (Auto) 62.1, Lymphocytes (% ) (Auto) 22.7, Monocytes (%) (Auto) 11.6H, Eosinophils (%) (Auto) 3.0, Basophils (%) (Auto) 0.7 Height (Feet): 5 Height (Inches): 4.00 Weight (Pounds): 150 Objective General: alert, cooperative, no distress, appears stated age Head: normocephalic, without obvious abnormality, atraumatic Eyes: conjunctivae/corneas clear. PERRL, EOM's intact Throat: lips, mucosa, and tongue normal. MMM Neck: supple, symmetrical, trachea midline, and no JVD Lungs: clear to auscultation bilaterally Heart: regular rate and rhythm, S1, S2 normal, no murmur, click, rub or gallop Abdomen: soft, non-tender, non-distended, bowel sounds normal; no masses or organomegaly Extremities: extremities normal, atraumatic, no cyanosis or edema Dressing c/d/i +FIDELIA drain w/ ss output Pulses: 2+ and symmetric Skin: skin color, texture, turgor normal; no rashes or lesions Neurologic: grossly normal, no focal deficits Ashley Lopez M.D. Jul 13, 2017 16:12
--- NOTE | 2017-07-13 17:17 | Infectious Diseases Prog Note ---
Assessment/Plan Assessment/Plan Full consult dictated: A) 1) right buttock cellulitis 2) s/p right buttock debridement of infected wound/tissue, reconstructive surgery, evacuation of hematoma, flap, drain 3) hidradenitis suppurativa, anemia, dm, htn 4) allergies - codeine, morphine, tegaderm 5) sh-negative, mar noted, fh-nc, notes and records noted 6) d/w RN P) 1) vancomycin and cefepime 2) watch clinically, check labs 3) continue other treatment 4) orders noted and entered 5) wound care per surgery 6) d/w Dr. Ramirez 7) thank you Subjective Allergies: Coded Allergies: MORPHINE (Verified Allergy, Severe, itching, 07/07/17) CODEINE (Verified Allergy, Intermediate, nauseous , 07/07/17) Uncoded Allergies: Tegaderm (Adverse Reaction, Mild, Itching, 07/10/17) Blistering Objective Vital Signs Last 24 Hour Vital Signs Date Time Temp Pulse Resp B/P (MAP) Pulse Ox O2 Delivery O2 Flow Rate FiO2 07/13/17 16:00 98.8 77 18 124/56 96 Room Air 07/13/17 12:00 20 07/13/17 12:00 99.7 79 18 108/59 96 Room Air 07/13/17 09:50 127/69 07/13/17 08:00 20 07/13/17 08:00 99.8 78 18 127/69 98 Room Air 07/13/17 04:00 20 07/13/17 04:00 99.5 85 18 154/84 97 Room Air 07/13/17 00:00 20 07/13/17 00:00 99.2 81 18 118/62 94 Room Air 07/12/17 20:00 20 07/12/17 20:00 99.1 87 18 114/71 96 Room Air Height (Feet): 5 Height (Inches): 4.00 Weight (Pounds): 150 Laboratory Tests Test 07/13/17 10:25 White Blood Count 7.4 K/UL (4.8-10.8) Red Blood Count 2.91 M/UL (4.20-5.40) L Hemoglobin 9.2 G/DL (12.0-16.0) L Hematocrit 27.3 % (37.0-47.0) L Mean Corpuscular Volume 94 FL (80-99) Mean Corpuscular Hemoglobin 31.5 PG (27.0-31.0) H Mean Corpuscular Hemoglobin Concent 33.6 G/DL (32.0-36.0) Red Cell Distribution Width 12.4 % (11.6-14.8) Platelet Count 256 K/UL (150-450) Mean Platelet Volume 6.7 FL (6.5-10.1) Neutrophils (%) (Auto) 62.1 % (45.0-75.0) Lymphocytes (%) (Auto) 22.7 % (20.0-45.0) Monocytes (%) (Auto) 11.6 % (1.0-10.0) H Eosinophils (%) (Auto) 3.0 % (0.0-3.0) Basophils (%) (Auto) 0.7 % (0.0-2.0) Current Medications Medications (Trade) Dose Ordered Sig/Jorgito Route PRN Reason Start Time Stop Time Status Last Admin Dose Admin Acetaminophen (Tylenol) 650 mg Q4H PRN ORAL FEVER>100.5 07/09/17 09:00 08/08/17 08:59 07/09/17 21:47 Cefepime HCl 2 gm/ Dextrose 110 ml @ 220 mls/hr EVERY 12 HOURS IVPB 07/13/17 11:30 07/20/17 11:29 07/13/17 12:34 Dextrose (Dextrose 50%) STAT PRN IV Hypoglycemia 07/08/17 15:45 08/07/17 15:44 Diphenhydramine HCl (Benadryl) 12.5 mg Q6H PRN IVP Itching/Pruritis 07/09/17 09:00 08/08/17 08:59 07/10/17 12:48 Docusate Sodium (Colace) 100 mg TWICE A DAY ORAL 07/08/17 18:00 08/07/17 17:59 07/13/17 09:51 Heparin Sodium (Porcine) (Heparin 5000 units/ml) 5,000 units EVERY 12 HOURS SUBQ 07/08/17 21:00 08/07/17 20:59 07/13/17 09:59 Hydrochlorothiazide (Hydrodiuril) 12.5 mg DAILY ORAL 07/09/17 09:00 08/08/17 08:59 07/13/17 09:51 Hydromorphone HCl 30 ml @ 0 mls/hr Q24H PRN IV For Pain 07/12/17 12:00 07/14/17 11:59 07/12/17 15:22 Hydromorphone HCl (Dilaudid) 2 mg Q3H PRN SUBQ Severe Breakthru Pain (7-10) 07/12/17 12:00 07/19/17 11:59 Hydromorphone HCl (Dilaudid) 2 mg Q4H PRN IVP Moderate Breakthru Pain (4-6) 07/12/17 12:00 07/14/17 11:59 Insulin Aspart (NovoLOG) BEFORE MEALS AND HS SUBQ 07/08/17 21:00 08/07/17 20:59 07/13/17 07:02 Irbesartan (Avapro) 150 mg DAILY ORAL 07/09/17 09:00 08/08/17 08:59 07/13/17 09:50 Miscellaneous Medication (DRIVE IN TELLER Rate Change) 1 ea DAILY PRN MISC rate change 07/12/17 12:00 07/14/17 11:59 Miscellaneous Medication (DRIVE IN TELLER shift volume) 1 ea Q12HR@0700,1900 MISC 07/12/17 12:00 07/14/17 11:59 07/13/17 07:00 Naloxone HCl (Narcan) 0.1 mg Q1M PRN IVP RR<10/min OR SBP<90 mmHg 07/12/17 12:00 07/14/17 11:59 Ondansetron HCl (Zofran) 4 mg Q6H PRN IVP Nausea & Vomiting 07/12/17 12:00 07/14/17 11:59 Polyethylene Glycol (Miralax) 17 gm DAILYPRN PRN ORAL Constipation 07/08/17 15:30 08/07/17 15:29 07/11/17 17:43 Sodium Chloride 1,000 ml @ 75 mls/hr [id number] IV 07/08/17 16:30 08/07/17 16:29 07/13/17 04:01 Vancomycin HCl (Vanco rx to dose) 1 ea DAILY PRN MISC Per rx protocol 07/13/17 10:00 08/12/17 09:59 Vancomycin HCl/ Dextrose 250 ml @ 166.667 mls/hr Q12HR@0000,1200 IVPB 07/13/17 12:00 07/18/17 11:59 07/13/17 14:28 Zolpidem Tartrate (Ambien) 5 mg QHS PRN ORAL Insomnia 07/09/17 21:00 08/08/17 20:59 KATHE DUPREE Jul 13, 2017 17:17
[2017-07-13] MEDS: PCA HYDROmorphone 1mg/ml 30 ML IV PRN (17:56)
[2017-07-13 20:00] VITALS: BP 141/70
[2017-07-14 00:02] VITALS: BP 122/58
[2017-07-14 04:00] VITALS: BP 130/67
--- NOTE | 2017-07-14 06:00 | Consultation ---
DATE OF CONSULTATION: 07/13/2017 INFECTIOUS DISEASES CONSULTATION CONSULTING PHYSICIAN: Miranda Trejo M.D. ATTENDING PHYSICIAN: Omega Amin M.D. REQUESTING PHYSICIAN: I was asked by Dr. Ramirez to see this patient, she is associate with Dr. Melendez. REASON FOR CONSULTATION: Right buttock cellulitis. CHIEF COMPLAINT: The patient's chief complaint coming in is hidradenitis suppurativa with infected right buttock tissue. HISTORY OF PRESENT ILLNESS: This is a very pleasant 57-year-old female, who comes into [facility], was noted to have infected right buttock tissue. She has a history of hidradenitis suppurativa. The patient initially had what looks like debridement of the right buttock infected tissue or mass with flap closure. The patient then had exploration of right buttock wound and evacuation of hematoma for right buttock wound and flap readvancement closure of right buttock wound. The patient now has redness at the incision site of the right buttock, which is consistent with cellulitis. She does have drains. Infectious Disease consultation was requested for antibiotic management. The patient was on Ancef and she has been changed to vancomycin and cefepime for MRSA and gram-negative coverage. The case was discussed with Dr. Ramirez. MAR was noted. Orders were noted. Notes were reviewed. Case was discussed with the RN. Case was discussed with the patient. PAST MEDICAL HISTORY: She has a past medical history of hidradenitis suppurativa. She has a history of surgery for hidradenitis suppurativa. She currently is anemic. She has a history of diabetes and hypertension. She has a history of hyperlipidemia also, but I am not clear on this. ALLERGIES: Codeine, morphine, and Tegaderm. MEDICATIONS: Upon reviewing the MAR, she is on the following medications. She is on vancomycin, cefepime, hydromorphone or Dilaudid, Narcan p.r.n. only as needed, Zofran, Ambien, Avapro, hydrochlorothiazide, Tylenol, and Benadryl. She has been on NovoLog insulin as an outpatient. I believe that she is on metformin. She was on Keflex prior, also amoxicillin clavulanic acid, Diovan, and Crestor. SOCIAL HISTORY: Negative for smoking, alcohol, or drug abuse. FAMILY HISTORY: Noncontributory. REVIEW OF SYSTEMS: Constitutional: She did have low-grade fevers earlier, but no chills mentioned. Head and neck: No mention of head pain or neck pain. No mention of dysphagia. Cardiac: No chest pain or palpitations mentioned. Gastrointestinal: No nausea, vomiting, or diarrhea. Genitourinary: No Mauricio. Pulmonary: No productive cough, shortness of breath, or hemoptysis. Skin: No new rash. She has drains from the surgery. Neurological: No seizures. PHYSICAL EXAMINATION: VITAL SIGNS: Temperature is 99.7 degrees, pulse rate 77, respiratory rate 18, blood pressure 124/56, and saturation 96%. Temperature now is 98.8 degrees, and pulse rate 77. GENERAL: Alert, responsive, and in no acute distress. HEAD AND NECK: Oral exam, no thrush. Eye exam, no icterus. Normocephalic. No facial droop. No neck stiffness. Neck is supple. HEART: Regular. No gallop or murmur. LUNGS: Clear bilaterally. No rhonchi or rales. ABDOMEN: Soft. Positive bowel sounds. Nontender. SKIN: No other rash. Right buttock wound incision was noted. She has what looks like surrounding redness and warmth, consistent with cellulitis. No drainage from the wound site itself or the incision site itself. She does have drains that have drainage. MUSCULOSKELETAL: No effusion or contractures. Legs without cellulitis. PERIPHERAL VASCULAR: No cyanosis or gangrene. GENITOURINARY: I do not see a Mauricio. No CVA tenderness. LINES: Line site is without phlebitis. NEUROLOGIC: Intact. Nonfocal. Alert and oriented x3. LABORATORY DATA: Creatinine is 0.6. White count is high at 11.7, now 7.4, and hemoglobin 9.2. UA was negative. ASSESSMENT AND PLAN: 1. The patient has what looks like right buttock cellulitis with redness. She is status post debridement of infected wound and tissue and reconstructive surgery and also evacuation from hematoma, flap, and drains. At this time, we will place her on vancomycin and cefepime. She was previously on Ancef which we will just continue. Vancomycin and cefepime are safe gram-negative coverage for the right buttock cellulitis. We will watch the patient clinically. We will watch creatinine closely on antibiotics and watch white cell count. Watch temperatures. The case was discussed with Dr. Ramirez and the patient. 2. Hidradenitis suppurativa with recent surgery. 3. She is anemic. 4. Diabetes. 5. Hypertension. 6. Possible hyperlipidemia. 7. Allergies to codeine, morphine, and Tegaderm but no antibiotic allergy. 8. Social history is negative. 9. MAR was noted. 10. Family history is noncontributory. 11. Case was discussed with RN. 12. Notes were reviewed 13. Continue treatment per Dr. Ramirez, Dr. Melendez and also Dr. Amin, Surgery. Miranda Trejo M.D. DR: Dinorah JOB#: [id number] CC:
[2017-07-14] MEDS: NovoLOG Insulin Flexpen SUBQ SCH ×4 (06:25→21:40)
[2017-07-14 06:51] LABS: ANION GAP 16 (5-15); CALCIUM 9.1 mg/dL (8.6-10.2); CARBON DIOXIDE 26 mEQ/L (20-30); CHLORIDE 99 mEQ/L (98-107); CREATININE 0.8 mg/dL (0.5-0.9); GLOMERULAR FILTRATION RATE > 60 mL/min (>60); HEMOLYSIS 1; POTASSIUM 3.4 mEQ/L (3.4-4.9); SODIUM 141 mEQ/L (135-145)
[2017-07-14] MEDS: PCA shift volume MISC SCH ×2 (07:16→19:11)
[2017-07-14 08:13] VITALS: BP 124/62
[2017-07-14] MEDS: Irbesartan 150mg tablet ORAL SCH (08:57)
[2017-07-14] MEDS: Docusate 100mg cap ORAL SCH ×2 (08:58→18:37)
[2017-07-14] MEDS: Cefepime HCl 2 GM in D5W 110 ML IVPB SCH ×2 (08:58→21:28)
[2017-07-14] MEDS: Heparin 5000 units/ml inj SUBQ SCH ×2 (09:03→21:29)
--- NOTE | 2017-07-14 09:14 | General Progress Note ---
Progress Note Progress Note Pt seen and examined. POD# 5 and stable. AVSS and cellulitis improved but still there. Will continue the abx for now and re-assess in AM. Possible dc home tomorrow but likely . NORMA Rogers MD Jul 14, 2017 09:14
[2017-07-14 11:56] VITALS: BP 132/69
[2017-07-14] MEDS: Vancomycin 1250mg/D5W 250ml IVPB SCH (12:01)
--- NOTE | 2017-07-14 12:29 | General Progress Note ---
Assessment/Plan Problem List: (1) cellulitis of flap (2) Postoperative fever ICD Codes: R50.82 - Postprocedural fever SNOMED: 620916782 (3) Hematoma from right lower buttock wound (4) Hidradenitis suppurativa ICD Codes: L73.2 - Hidradenitis suppurativa SNOMED: 74714893 (5) HTN (hypertension) ICD Codes: I10 - Essential (primary) hypertension SNOMED: 55746730 (6) DM2 (diabetes mellitus, type 2) ICD Codes: E11.9 - Type 2 diabetes mellitus without complications SNOMED: 46348460 (7) HLD (hyperlipidemia) ICD Codes: E78.5 - Hyperlipidemia, unspecified SNOMED: 49187346 Status: stable Assessment/Plan - Appreciate plastic surgery rec's - s/p excision of right lower buttock infected tissue with flap closure on - s/p evacuation of hematoma from right lower buttock wound on 07/09/17 - ID consulted - Abx expanded to Vanco and Cefepime (07/13-) - s/p cefepime Post operative recommendations include: - encourage mobilization/ambulation - encourage incentive spirometry to optimize pulmonary hygiene - DVT/GI prophylaxis as appropriate - ctm CBC and hemodynamics - ctm electrolytes, adjust/replete prn - pain control, supportive care, bowel regimen - IVFs--heplock once tolerating PO - cont home meds - hold home MTF for now - GIRISH - DC planning pending clearance from surgery and ID - Home health ordered for wound care FULL CODE D/w pt/, RN, surgery regarding mgmt and dispo. D/w surgery regarding cellulitis. D/w ID re abx Subjective Date patient seen: Jul 14, 2017 Time patient seen: 12:28 ROS Limited/Unobtainable: No Constitutional: Reports: no symptoms HEENT: Reports: no symptoms Cardiovascular: Reports: no symptoms Respiratory: Reports: no symptoms Gastrointestinal/Abdominal: Reports: no symptoms Genitourinary: Reports: no symptoms Neurologic/Psychiatric: Reports: no symptoms Endocrine: Reports: no symptoms Hematologic/Lymphatic: Reports: no symptoms Allergies: Coded Allergies: MORPHINE (Verified Allergy, Severe, itching, 07/07/17) CODEINE (Verified Allergy, Intermediate, nauseous , 07/07/17) Uncoded Allergies: Tegaderm (Adverse Reaction, Mild, Itching, 07/10/17) Blistering All Systems: reviewed and negative except above Subjective s/p evacuation of hematoma from right lower buttock wound POD#5 D/c held given concern for cellulitis of flap Afebrile o/n WBC 7.4 Abx expanded to vanco and cefepime per ID Pt doing well. Pain controlled. Denies f/c, n/v, d/c, chest pain, SOB +BM Objective Last 24 Hour Vital Signs Date Time Temp Pulse Resp B/P (MAP) Pulse Ox O2 Delivery O2 Flow Rate FiO2 07/14/17 11:56 98.2 79 21 132/69 98 Room Air 07/14/17 08:57 124/62 07/14/17 08:13 98.1 83 20 124/62 97 Room Air 07/14/17 08:00 18 07/14/17 04:00 99.3 73 19 130/67 96 Room Air 07/14/17 04:00 18 07/14/17 00:02 99.0 74 20 122/58 96 Room Air 07/14/17 00:00 18 07/13/17 20:00 100.0 77 20 141/70 95 Room Air 07/13/17 20:00 18 07/13/17 16:00 98.8 77 18 124/56 96 Room Air 07/13/17 16:00 20 Intake and Output 07/14/17 07/15/17 19:00 07:00 Intake Total 675 ml Balance 675 ml Intake Oral 340 ml IV Total 335 ml # Voids 1 # Bowel Movements 1 Laboratory Tests 07/14/17 05:20: Sodium Level 141, Potassium Level 3.4, Chloride Level 99, Carbon Dioxide Level 26, Anion Gap 16H, Blood Urea Nitrogen 9, Creatinine 0.8, Estimat Glomerular Filtration Rate > 60, Glucose Level 121H, Calcium Level 9.1 Height (Feet): 5 Height (Inches): 4.00 Weight (Pounds): 150 Objective General: alert, cooperative, no distress, appears stated age Head: normocephalic, without obvious abnormality, atraumatic Eyes: conjunctivae/corneas clear. PERRL, EOM's intact Throat: lips, mucosa, and tongue normal. MMM Neck: supple, symmetrical, trachea midline, and no JVD Lungs: clear to auscultation bilaterally Heart: regular rate and rhythm, S1, S2 normal, no murmur, click, rub or gallop Abdomen: soft, non-tender, non-distended, bowel sounds normal; no masses or organomegaly Extremities: extremities normal, atraumatic, no cyanosis or edema Dressing c/d/i +FIDELIA drain w/ ss output Pulses: 2+ and symmetric Skin: skin color, texture, turgor normal; no rashes or lesions Neurologic: grossly normal, no focal deficits Ashley Lopez M.D. Jul 14, 2017 12:29
[2017-07-14] MEDS ORDERED: 1/2 NS 1000ml IV ONE (14:38)
[2017-07-14 16:00] VITALS: BP 133/53
[2017-07-14] MEDS ORDERED: PCA HYDROmorphone 1mg/ml 30 ML IV PRN (17:00)
[2017-07-14] MEDS ORDERED: PCA Education Pamphlet MISC ONE (17:00)
[2017-07-14] MEDS ORDERED: Rate Change PCA 1 Each MISC PRN (17:00)
[2017-07-14 20:13] VITALS: BP 134/55
--- NOTE | 2017-07-14 21:19 | Infectious Diseases Prog Note ---
Assessment/Plan Assessment/Plan A) 1) right buttock cellulitis - somewhat better but still has some 2) s/p right buttock debridement of infected wound/tissue, reconstructive surgery, evacuation of hematoma, flap, drain 3) hidradenitis suppurativa, anemia, dm, htn 4) allergies - codeine, morphine, tegaderm 5) sh-negative, mar noted, fh-nc, notes and records noted 6) d/w RN P) 1) vancomycin and cefepime for now 2) watch clinically, check labs 3) continue other treatment 4) orders noted and entered 5) wound care per surgery 6) d/w Dr. Ramirez 7) thank you Subjective Constitutional: Reports: fever - lgt HEENT: Denies: congestion Respiratory: Denies: shortness of breath Cardiovascular: Denies: chest pain Gastrointestinal/Abdominal: Denies: nausea, vomiting, diarrhea Genitourinary: Reports: other - no sanchez Psychiatric: Denies: depression Skin: Denies: rash Hematologic: Denies: bleeding Musculoskeletal: Reports: pain - less right buttock pain Allergies: Coded Allergies: MORPHINE (Verified Allergy, Severe, itching, 07/07/17) CODEINE (Verified Allergy, Intermediate, nauseous , 07/07/17) Uncoded Allergies: Tegaderm (Adverse Reaction, Mild, Itching, 07/10/17) Blistering Objective Vital Signs Last 24 Hour Vital Signs Date Time Temp Pulse Resp B/P (MAP) Pulse Ox O2 Delivery O2 Flow Rate FiO2 07/14/17 20:13 99.5 82 19 134/55 97 Room Air 07/14/17 19:22 98.1 07/14/17 16:00 20 07/14/17 16:00 98.1 74 18 133/53 97 Room Air 07/14/17 12:00 18 07/14/17 11:56 98.2 79 21 132/69 98 Room Air 07/14/17 08:57 124/62 07/14/17 08:13 98.1 83 20 124/62 97 Room Air 07/14/17 08:00 18 07/14/17 04:00 99.3 73 19 130/67 96 Room Air 07/14/17 04:00 18 07/14/17 00:02 99.0 74 20 122/58 96 Room Air 07/14/17 00:00 18 Height (Feet): 5 Height (Inches): 4.00 Weight (Pounds): 150 General Appearance: no acute distress HEENT: normocephalic, atraumatic, anicteric, mucous membranes moist Respiratory/Chest: lungs clear, normal breath sounds Cardiovascular: normal rate, regular rhythm Abdomen: soft, non tender, no organomegaly Extremities: no cyanosis Skin: no rash, other - right buttock with less redness but still some induration/redness Neurologic/Psychiatric: hydrotherapist II-XII grossly normal, alert Laboratory Tests Test 07/14/17 05:20 Sodium Level 141 mEQ/L (135-145) Potassium Level 3.4 mEQ/L (3.4-4.9) Chloride Level 99 mEQ/L (98-107) Carbon Dioxide Level 26 mEQ/L (20-30) Anion Gap 16 (5-15) H Blood Urea Nitrogen 9 mg/dL (7-23) Creatinine 0.8 mg/dL (0.5-0.9) Estimat Glomerular Filtration Rate > 60 mL/min (>60) Glucose Level 121 mg/dL (74-106) H Calcium Level 9.1 mg/dL (8.6-10.2) Current Medications Medications (Trade) Dose Ordered Sig/Jorgito Route PRN Reason Start Time Stop Time Status Last Admin Dose Admin Acetaminophen (Tylenol) 650 mg Q4H PRN ORAL FEVER>100.5 07/09/17 09:00 08/08/17 08:59 07/09/17 21:47 Cefepime HCl 2 gm/ Dextrose 110 ml @ 220 mls/hr EVERY 12 HOURS IVPB 07/13/17 11:30 07/20/17 11:29 07/14/17 08:58 Dextrose (Dextrose 50%) STAT PRN IV Hypoglycemia 07/08/17 15:45 08/07/17 15:44 Diphenhydramine HCl (Benadryl) 12.5 mg Q6H PRN IVP Itching/Pruritis 07/09/17 09:00 08/08/17 08:59 07/10/17 12:48 Docusate Sodium (Colace) 100 mg TWICE A DAY ORAL 07/08/17 18:00 08/07/17 17:59 07/14/17 18:37 Heparin Sodium (Porcine) (Heparin 5000 units/ml) 5,000 units EVERY 12 HOURS SUBQ 07/08/17 21:00 08/07/17 20:59 07/14/17 09:03 Hydrochlorothiazide (Hydrodiuril) 12.5 mg DAILY ORAL 07/09/17 09:00 08/08/17 08:59 07/14/17 08:57 Hydromorphone HCl 30 ml @ 0 mls/hr Q24H PRN IV For Pain 07/14/17 17:00 07/16/17 16:59 07/14/17 18:52 Hydromorphone HCl (Dilaudid) 2 mg Q4H PRN IVP MODERATE BREAKTHROUGH PAIN 07/14/17 17:00 07/16/17 16:59 Hydromorphone HCl (Dilaudid) 2 mg q3h PRN SUBQ SEVERE BREAKTHROUGH PAIN 07/14/17 17:00 07/16/17 16:59 Insulin Aspart (NovoLOG) BEFORE MEALS AND HS SUBQ 07/08/17 21:00 08/07/17 20:59 07/14/17 17:05 Irbesartan (Avapro) 150 mg DAILY ORAL 07/09/17 09:00 08/08/17 08:59 07/14/17 08:57 Miscellaneous Medication (BOOSTER PUMP OPERATOR Rate Change) 1 ea DAILYPRN PRN MISC rate change 07/14/17 17:00 07/16/17 16:59 Miscellaneous Medication (BOOSTER PUMP OPERATOR shift volume) 1 ea Q12HR@0700,1900 MISC 07/14/17 19:00 07/16/17 18:59 07/14/17 19:11 Naloxone HCl (Narcan) 0.1 mg PRN IV STAT RR<10min OR SBP<90 07/14/17 17:00 08/31/17 16:59 Polyethylene Glycol (Miralax) 17 gm DAILYPRN PRN ORAL Constipation 07/08/17 15:30 08/07/17 15:29 07/11/17 17:43 Sodium Chloride 1,000 ml @ 75 mls/hr [id number] IV 07/08/17 16:30 08/07/17 16:29 07/14/17 06:21 Vancomycin HCl (Vanco rx to dose) 1 ea DAILY PRN MISC Per rx protocol 07/13/17 10:00 08/12/17 09:59 Vancomycin HCl/ Dextrose 250 ml @ 166.667 mls/hr Q12HR@0000,1200 IVPB 07/13/17 12:00 07/18/17 11:59 07/14/17 12:01 Zolpidem Tartrate (Ambien) 5 mg QHS PRN ORAL Insomnia 07/09/17 21:00 08/08/17 20:59 KATHE DUPREE Jul 14, 2017 21:19
[2017-07-15 00:10] VITALS: BP 124/50
[2017-07-15] MEDS: Vancomycin 1250mg/D5W 250ml IVPB SCH ×2 (00:51→11:15)
[2017-07-15 04:36] VITALS: BP 128/68
[2017-07-15] MEDS: NovoLOG Insulin Flexpen SUBQ SCH ×4 (05:55→21:11)
[2017-07-15 06:59] LABS: BASOPHILS % (AUTO) 0.9 % (0.0-2.0); LYMPHOCYTES % (AUTO) 36.7 % (20.0-45.0); MEAN CORPUSCULAR HEMOGLOBIN 31.2 PG (27.0-31.0); MEAN CORPUSCULAR VOLUME 95 FL (80-99); MEAN PLATELET VOLUME 6.1 FL (6.5-10.1); MONOCYTES % (AUTO) 11.1 % (1.0-10.0); NEUTROPHILS % (AUTO) 47.3 % (45.0-75.0); PLATELET COUNT 411 K/UL (150-450); RED BLOOD COUNT 3.23 M/UL (4.20-5.40); RED CELL DISTRIBUTION WIDTH 12.5 % (11.6-14.8); WHITE BLOOD COUNT 8.5 K/UL (4.8-10.8)
[2017-07-15] MEDS: PCA shift volume MISC SCH (07:00)
[2017-07-15 07:08] LABS: ANION GAP 16 (5-15); CALCIUM 9.7 mg/dL (8.6-10.2); CARBON DIOXIDE 26 mEQ/L (20-30); CHLORIDE 100 mEQ/L (98-107); CREATININE 0.7 mg/dL (0.5-0.9); GLOMERULAR FILTRATION RATE > 60 mL/min (>60); HEMOLYSIS 0; POTASSIUM 4.2 mEQ/L (3.4-4.9); SODIUM 142 mEQ/L (135-145)
[2017-07-15 08:00] VITALS: BP 115/68
[2017-07-15] MEDS: Irbesartan 150mg tablet ORAL SCH (08:11)
[2017-07-15] MEDS: Docusate 100mg cap ORAL SCH ×2 (08:11→17:31)
[2017-07-15] MEDS: Cefepime HCl 2 GM in D5W 110 ML IVPB SCH ×2 (08:11→20:43)
[2017-07-15] MEDS: Heparin 5000 units/ml inj SUBQ SCH ×2 (08:17→20:45)
[2017-07-15 12:00] VITALS: BP 102/44
[2017-07-15] MEDS: HYDROmorphone 1mg/ml Carpuject IVP PRN ×3 (12:07→20:44)
[2017-07-15 16:00] VITALS: BP 130/74
--- NOTE | 2017-07-15 16:33 | General Progress Note ---
Assessment/Plan Problem List: (1) cellulitis of flap (2) Postoperative fever ICD Codes: R50.82 - Postprocedural fever SNOMED: 508807792 (3) Hematoma from right lower buttock wound (4) Hidradenitis suppurativa ICD Codes: L73.2 - Hidradenitis suppurativa SNOMED: 33558464 (5) HTN (hypertension) ICD Codes: I10 - Essential (primary) hypertension SNOMED: 68965811 (6) DM2 (diabetes mellitus, type 2) ICD Codes: E11.9 - Type 2 diabetes mellitus without complications SNOMED: 66271466 (7) HLD (hyperlipidemia) ICD Codes: E78.5 - Hyperlipidemia, unspecified SNOMED: 01195706 Status: stable Assessment/Plan - Appreciate plastic surgery rec's - s/p excision of right lower buttock infected tissue with flap closure on - s/p evacuation of hematoma from right lower buttock wound on 07/09/17 - ID consulted - Abx expanded to Vanco and Cefepime (07/13-) Post operative recommendations include: - encourage mobilization/ambulation - encourage incentive spirometry to optimize pulmonary hygiene - DVT/GI prophylaxis as appropriate - ctm CBC and hemodynamics - ctm electrolytes, adjust/replete prn - pain control, supportive care, bowel regimen - IVFs--heplock once tolerating PO - cont home meds - hold home MTF for now - GIRISH - DC planning pending clearance from surgery and ID - Home health ordered for wound care FULL CODE D/w pt/, RN, surgery regarding mgmt and dispo. D/w surgery regarding cellulitis. D/w ID re abx Subjective Date patient seen: Jul 15, 2017 Time patient seen: 16:33 ROS Limited/Unobtainable: No Constitutional: Reports: no symptoms HEENT: Reports: no symptoms Cardiovascular: Reports: no symptoms Respiratory: Reports: no symptoms Gastrointestinal/Abdominal: Reports: no symptoms Genitourinary: Reports: no symptoms Neurologic/Psychiatric: Reports: no symptoms Endocrine: Reports: no symptoms Hematologic/Lymphatic: Reports: no symptoms Allergies: Coded Allergies: MORPHINE (Verified Allergy, Severe, itching, 07/07/17) CODEINE (Verified Allergy, Intermediate, nauseous , 07/07/17) Uncoded Allergies: Tegaderm (Adverse Reaction, Mild, Itching, 07/10/17) Blistering Subjective s/p evacuation of hematoma from right lower buttock wound POD#6 Pt doing well. Pain controlled. Denies f/c, n/v, d/c, chest pain, SOB +BM Objective Last 24 Hour Vital Signs Date Time Temp Pulse Resp B/P (MAP) Pulse Ox O2 Delivery O2 Flow Rate FiO2 07/15/17 12:37 97.7 07/15/17 12:00 97.8 67 18 102/44 97 Room Air 07/15/17 08:11 128/68 07/15/17 08:00 97.7 64 17 115/68 97 Room Air 07/15/17 08:00 18 07/15/17 04:36 97.7 77 17 128/68 97 Room Air 07/15/17 04:00 20 07/15/17 00:10 98.8 72 18 124/50 98 Room Air 07/15/17 00:00 20 07/14/17 20:13 99.5 82 19 134/55 97 Room Air 07/14/17 20:00 20 07/14/17 19:22 98.1 Intake and Output 07/15/17 07/16/17 19:00 07:00 Intake Total 1000 ml Balance 1000 ml Intake Oral 550 ml IV Total 450 ml # Voids 2 Laboratory Tests 07/14/17 23:45: Vancomycin Level Trough 12.0 07/15/17 05:30: White Blood Count 8.5, Red Blood Count 3.23L, Hemoglobin 10.1L, Hematocrit 30.5L , Mean Corpuscular Volume 95, Mean Corpuscular Hemoglobin 31.2H, Mean Corpuscular Hemoglobin Concent 33.0, Red Cell Distribution Width 12.5, Platelet Count 411, Mean Platelet Volume 6.1L, Neutrophils (%) (Auto) 47.3, Lymphocytes ( %) (Auto) 36.7, Monocytes (%) (Auto) 11.1H, Eosinophils (%) (Auto) 4.0H, Basophils (%) (Auto) 0.9, Sodium Level 142, Potassium Level 4.2, Chloride Level 100, Carbon Dioxide Level 26, Anion Gap 16H, Blood Urea Nitrogen 10, Creatinine 0.7, Estimat Glomerular Filtration Rate > 60, Glucose Level 120H, Calcium Level 9.7 Height (Feet): 5 Height (Inches): 4.00 Weight (Pounds): 150 Objective General: alert, cooperative, no distress, appears stated age Head: normocephalic, without obvious abnormality, atraumatic Eyes: conjunctivae/corneas clear. PERRL, EOM's intact Throat: lips, mucosa, and tongue normal. MMM Neck: supple, symmetrical, trachea midline, and no JVD Lungs: clear to auscultation bilaterally Heart: regular rate and rhythm, S1, S2 normal, no murmur, click, rub or gallop Abdomen: soft, non-tender, non-distended, bowel sounds normal; no masses or organomegaly Extremities: extremities normal, atraumatic, no cyanosis or edema Dressing c/d/i +FIDELIA drain w/ ss output Pulses: 2+ and symmetric Skin: skin color, texture, turgor normal; no rashes or lesions Neurologic: grossly normal, no focal deficits Ashley Lopez M.D. Jul 15, 2017 16:33
[2017-07-15] MEDS ORDERED: CEFDINIR300 MG PO (16:38)
[2017-07-15] MEDS ORDERED: BACTRIM DS TAB1 EAC1 ORAL (16:38)
--- NOTE | 2017-07-15 16:56 | Infectious Diseases Prog Note ---
Assessment/Plan Assessment/Plan A) 1) right buttock cellulitis - improved, significantly less redness 2) s/p right buttock debridement of infected wound/tissue, reconstructive surgery, evacuation of hematoma, flap, drain 3) hidradenitis suppurativa, anemia, dm, htn 4) allergies - codeine, morphine, tegaderm 5) sh-negative, mar noted, fh-nc, notes and records noted 6) d/w RN P) 1) vancomycin and cefepime for now 2) can discharge on cefdinir plus bactrim x 7 days to complete abx treatment course (10 days total tx) 3) continue other treatment 4) orders noted and entered 5) wound care per surgery 6) d/w Dr. Ramirez 7) d/w patient Subjective Constitutional: Reports: fatigue, Denies: fever Respiratory: Denies: shortness of breath Cardiovascular: Denies: chest pain Gastrointestinal/Abdominal: Denies: nausea, vomiting, diarrhea Genitourinary: Reports: other - no sanchez Neurologic: Denies: headache Psychiatric: Denies: depression Skin: Denies: rash Hematologic: Denies: bleeding Musculoskeletal: Reports: pain - controlled Allergies: Coded Allergies: MORPHINE (Verified Allergy, Severe, itching, 07/07/17) CODEINE (Verified Allergy, Intermediate, nauseous , 07/07/17) Uncoded Allergies: Tegaderm (Adverse Reaction, Mild, Itching, 07/10/17) Blistering Objective Vital Signs Last 24 Hour Vital Signs Date Time Temp Pulse Resp B/P (MAP) Pulse Ox O2 Delivery O2 Flow Rate FiO2 07/15/17 12:37 97.7 07/15/17 12:00 97.8 67 18 102/44 97 Room Air 07/15/17 08:11 128/68 07/15/17 08:00 97.7 64 17 115/68 97 Room Air 07/15/17 08:00 18 07/15/17 04:36 97.7 77 17 128/68 97 Room Air 07/15/17 04:00 20 07/15/17 00:10 98.8 72 18 124/50 98 Room Air 07/15/17 00:00 20 07/14/17 20:13 99.5 82 19 134/55 97 Room Air 07/14/17 20:00 20 07/14/17 19:22 98.1 Height (Feet): 5 Height (Inches): 4.00 Weight (Pounds): 150 General Appearance: no acute distress HEENT: normocephalic, atraumatic, anicteric, EOMI, pharynx normal, supple, no JVD Respiratory/Chest: lungs clear, normal breath sounds, no respiratory distress, no accessory muscle use Cardiovascular: normal rate, regular rhythm, no gallop/murmur, no JVD Abdomen: normal bowel sounds, soft, non tender, no organomegaly, non distended Genitourinary: other - no sanchez Extremities: no cyanosis Skin: no rash, other - right buttock redness improved Neurologic/Psychiatric: welder plasma arc II-XII grossly normal, alert, oriented x 3, responsive Lymphatic: no neck adenopathy Musculoskeletal: no effusion Objective none Microbiology Date/Time Source Procedure Growth Status 07/08/17 10:45 Nasal Nares MRSA Culture - Final NO METHICILLIN RESISTANT STAPH AUREUS... Complete Laboratory Tests Test 07/14/17 23:45 07/15/17 05:30 Vancomycin Level Trough 12.0 ug/mL (5.0-12.0) White Blood Count 8.5 K/UL (4.8-10.8) Red Blood Count 3.23 M/UL (4.20-5.40) L Hemoglobin 10.1 G/DL (12.0-16.0) L Hematocrit 30.5 % (37.0-47.0) L Mean Corpuscular Volume 95 FL (80-99) Mean Corpuscular Hemoglobin 31.2 PG (27.0-31.0) H Mean Corpuscular Hemoglobin Concent 33.0 G/DL (32.0-36.0) Red Cell Distribution Width 12.5 % (11.6-14.8) Platelet Count 411 K/UL (150-450) Mean Platelet Volume 6.1 FL (6.5-10.1) L Neutrophils (%) (Auto) 47.3 % (45.0-75.0) Lymphocytes (%) (Auto) 36.7 % (20.0-45.0) Monocytes (%) (Auto) 11.1 % (1.0-10.0) H Eosinophils (%) (Auto) 4.0 % (0.0-3.0) H Basophils (%) (Auto) 0.9 % (0.0-2.0) Sodium Level 142 mEQ/L (135-145) Potassium Level 4.2 mEQ/L (3.4-4.9) Chloride Level 100 mEQ/L (98-107) Carbon Dioxide Level 26 mEQ/L (20-30) Anion Gap 16 (5-15) H Blood Urea Nitrogen 10 mg/dL (7-23) Creatinine 0.7 mg/dL (0.5-0.9) Estimat Glomerular Filtration Rate > 60 mL/min (>60) Glucose Level 120 mg/dL (74-106) H Calcium Level 9.7 mg/dL (8.6-10.2) Current Medications Medications (Trade) Dose Ordered Sig/Jorgito Route PRN Reason Start Time Stop Time Status Last Admin Dose Admin Acetaminophen (Tylenol) 650 mg Q4H PRN ORAL FEVER>100.5 07/09/17 09:00 08/08/17 08:59 07/09/17 21:47 Cefepime HCl 2 gm/ Dextrose 110 ml @ 220 mls/hr EVERY 12 HOURS IVPB 07/13/17 11:30 07/20/17 11:29 07/15/17 08:11 Dextrose (Dextrose 50%) STAT PRN IV Hypoglycemia 07/08/17 15:45 08/07/17 15:44 Diphenhydramine HCl (Benadryl) 12.5 mg Q6H PRN IVP Itching/Pruritis 07/09/17 09:00 08/08/17 08:59 07/10/17 12:48 Docusate Sodium (Colace) 100 mg TWICE A DAY ORAL 07/08/17 18:00 08/07/17 17:59 07/15/17 08:11 Heparin Sodium (Porcine) (Heparin 5000 units/ml) 5,000 units EVERY 12 HOURS SUBQ 07/08/17 21:00 08/07/17 20:59 07/15/17 08:17 Hydrochlorothiazide (Hydrodiuril) 12.5 mg DAILY ORAL 07/09/17 09:00 08/08/17 08:59 07/15/17 08:11 Hydromorphone HCl (Dilaudid) 1 mg Q4H PRN IVP For Pain 07/15/17 09:30 07/22/17 09:29 07/15/17 16:21 Insulin Aspart (NovoLOG) BEFORE MEALS AND HS SUBQ 07/08/17 21:00 08/07/17 20:59 07/15/17 16:31 Irbesartan (Avapro) 150 mg DAILY ORAL 07/09/17 09:00 08/08/17 08:59 07/15/17 08:11 Polyethylene Glycol (Miralax) 17 gm DAILYPRN PRN ORAL Constipation 07/08/17 15:30 08/07/17 15:29 07/11/17 17:43 Sodium Chloride 1,000 ml @ 75 mls/hr [id number] IV 07/08/17 16:30 08/07/17 16:29 07/15/17 08:11 Vancomycin HCl (Vanco rx to dose) 1 ea DAILY PRN MISC Per rx protocol 07/13/17 10:00 08/12/17 09:59 Vancomycin HCl/ Dextrose 250 ml @ 166.667 mls/hr Q12HR@0000,1200 IVPB 07/13/17 12:00 07/18/17 11:59 07/15/17 11:15 Zolpidem Tartrate (Ambien) 5 mg QHS PRN ORAL Insomnia 07/09/17 21:00 08/08/17 20:59 KATHE DUPREE Jul 15, 2017 16:56
[2017-07-15 20:00] VITALS: BP 122/63
[2017-07-16] VITALS: BP 109/62
[2017-07-16] MEDS: Vancomycin 1250mg/D5W 250ml IVPB SCH ×2 (00:11→13:06)
[2017-07-16] MEDS: HYDROmorphone 1mg/ml Carpuject IVP PRN ×2 (02:52→08:46)
[2017-07-16 04:01] VITALS: BP 105/58
[2017-07-16] MEDS: NovoLOG Insulin Flexpen SUBQ SCH ×2 (06:24→12:41)
[2017-07-16 08:00] VITALS: BP 117/61
[2017-07-16] MEDS: Docusate 100mg cap ORAL SCH (08:44)
[2017-07-16] MEDS: Irbesartan 150mg tablet ORAL SCH (08:44)
[2017-07-16] MEDS: Heparin 5000 units/ml inj SUBQ SCH (08:45)
[2017-07-16] MEDS: Cefepime HCl 2 GM in D5W 110 ML IVPB SCH (08:47)
[2017-07-16 12:00] VITALS: BP 117/59
[2017-07-16 16:00] VITALS: BP 123/56
[2017-07-16] MEDS ORDERED: 1/2 NS 1000ml IV ONE (17:02)
--- NOTE | 2017-07-16 22:03 | Discharge Summary ---
Discharge Summary Hospital Course Date of Admission Jul 08, 2017 at 14:46 Date of Discharge Jul 16, 2017 at 17:03 Admitting Diagnosis hiradenitis suppurative HPI - Appreciate plastic surgery rec's - s/p excision of right lower buttock infected tissue with flap closure on - s/p evacuation of hematoma from right lower buttock wound on 07/09/17 - ID consulted - Abx expanded to Vanco and Cefepime (07/13-) - s/p cefepime Post operative recommendations include: - encourage mobilization/ambulation - encourage incentive spirometry to optimize pulmonary hygiene - DVT/GI prophylaxis as appropriate - ctm CBC and hemodynamics - ctm electrolytes, adjust/replete prn - pain control, supportive care, bowel regimen - IVFs--heplock once tolerating PO - cont home meds - hold home MTF for now - GIRISH - DC planning pending clearance from surgery and ID - Home health ordered for wound care Consultations Plastic surgery, infectious disease Procedures s/p excision of right lower buttock infected tissue with flap closure on 07/08/17 s/p evacuation of hematoma from right lower buttock wound on 07/09/17 Hospital Course Pt was admitted and underwent excision of right lower buttock infected tissue with flap closure on 07/08/17. Course complicated by hematoma s/p evacuation of hematoma from right lower buttock wound on 07/09/17. Pt also with postop fevers and found to have cellulitis of flap. ID was consulted and antibiotics optimized. Pt was discharge on course of bactrim +cefdinir per ID. Discharge physical exam General: alert, cooperative, no distress, appears stated age Head: normocephalic, without obvious abnormality, atraumatic Eyes: conjunctivae/corneas clear. PERRL, EOM's intact Throat: lips, mucosa, and tongue normal. MMM Neck: supple, symmetrical, trachea midline, and no JVD Lungs: clear to auscultation bilaterally Heart: regular rate and rhythm, S1, S2 normal, no murmur, click, rub or gallop Abdomen: soft, non-tender, non-distended, bowel sounds normal; no masses or organomegaly Extremities: extremities normal, atraumatic, no cyanosis or edema Dressing c/d/i +FIDELIA drain w/ ss output Pulses: 2+ and symmetric Skin: skin color, texture, turgor normal; no rashes or lesions Neurologic: grossly normal, no focal deficits Discharge Medications New Medications: Cefdinir (Cefdinir) 300 Mg Capsule 300 MG PO BID for 7 Days, #14 CAP Trimethoprim/Sulfamethoxazole 160/800* (Bactrim Ds Tablet*) 1 Each Tablet 1 TAB ORAL TWICE A DAY for 7 Days, #14 TAB Continued Medications: Glucosam/Chond/Hyalu/Cf Borate (Move Free Joint Health Tablet) 1 Each Tablet 1 EACH PO DAILY, TAB Ibuprofen (Ibuprofen) 800 Mg Tablet 800 MG PO TID PRN for For Pain, TAB Metformin HCl (Metformin HCl ER) 500 Mg [id number] 500 MG PO DAILY, TAB Mu-Vits-Min Th/Lycopene/Lutein (Centrum Silver Tablet) 1 Each Tablet 1 EACH PO DAILY, TAB Multivitamin With Minerals (Hair, Skin & Nails) 1 Each Tablet 1 EACH PO DAILY, TAB Cross[facility]-3 Fatty Acids/Fish Oil ([facility] 3 Fish Oil Softgel) 1 Each Capsule.dr 1 EACH PO DAILY, CAP Rosuvastatin Calcium (Crestor) 5 Mg Tablet 5 MG ORAL DAILY, TAB Valsartan/Hydrochlorothiazide 160-12.5MG (Diovan Hct 160-12.5 Mg Tab) 1 Each Tablet 1 TAB ORAL DAILY, TAB Discontinued Medications: Amoxicillin/Potassium Clav 875-125 Mg Tab* (Amox Tr-K Clv 875-125 Mg Tab*) 1 Each Tablet 1 TAB ORAL EVERY 12 HOURS, TAB Discharge Condition Upon Discharge: stable Discharge Disposition Patient was discharged to Home with Home Health(06) Discharge Diagnoses: (1) Hidradenitis suppurativa (2) Hematoma from right lower buttock wound (3) Postoperative fever (4) cellulitis of flap (5) DM2 (diabetes mellitus, type 2) (6) HLD (hyperlipidemia) (7) HTN (hypertension) Ashley Lopez M.D. Jul 16, 2017 22:03
== END 2017-07-16 17:03 | disposition home or self-care (01) | DRG 577 ==
LOC: SDS 09:45 → EDSTATUS 11:30 → 3E 14:46
DX: L73.2 Hidradenitis suppurativa (principal); L76.32 Postprocedural hematoma of skin and subcutaneous tissue following other procedure; I10 Essential (primary) hypertension; E11.9 Type 2 diabetes mellitus without complications; E78.5 Hyperlipidemia, unspecified; D64.9 Anemia, unspecified; K21.9 Gastro-esophageal reflux disease without esophagitis; R50.82 Postprocedural fever; L03.317 Cellulitis of buttock; Y83.8 Other surgical procedures as the cause of abnormal reaction of the patient, or of later complication, without mention of misadventure at the time of the procedure; Y92.238 Other place in hospital as the place of occurrence of the external cause
CPT/HCPCS: 36415; 80048; 80076; 80202; 81003; 82962; 85025; 87081; 94003; 94150; J1815; J2180; J2250; J2405; J2710